=== PATIENT | male | born 1985 | race Caucasian/White ===

== ENCOUNTER 2016-06-03 14:30 | Inpatient (IN) | payer OTHER ==
[~2016-06-03] VITALS: Ht 182.9 cm; Wt 97.0 kg
[~2016-06-03 14:30] MED LIST: LORA10TA51 PO; PRLSR20 PO; RANI150T3 PO
[2016-06-03] MEDS ORDERED: CALC500C3 PO (16:01)
[2016-06-03] MEDS ORDERED: OMEP20CA9 PO (16:01)
[2016-06-03] MEDS ORDERED: SODIUM CHLORIDE 0.9% 1000ML 1,000 ML IV STA (16:09)
[2016-06-03] MEDS ORDERED: ASPIRIN 81 MG CHEW PO STA (16:09)
[2016-06-03] MEDS ORDERED: NITROGLYCERIN 0.4 MG SL PER TAB CHARGE SL PRN (16:15)
--- NOTE | 2016-06-03 16:44 | DIAGNOSTIC IMAGING REPORT ---
CHEST ONE VIEW PORTABLE CLINICAL HISTORY: Chest pain. Cough. COMPARISON STUDY: Chest radiograph October 25, 2015. FINDINGS: Lung volumes are normal. There is no pneumothorax or pleural effusion. Pulmonary vascularity is normal. Cardiac size is normal as are mediastinal contours. Mild left basilar opacity favors atelectasis. IMPRESSION: 1. No acute findings. 2. Mild left basilar opacity suggestive of atelectasis. Electronically signed by: Priyank Hu M.D. 06/03/2016 4:42 PM Dictated Date/Time: 06/03/2016 4:42 PM
[2016-06-03 16:53] LABS: BASO % 0.2 %; BASO ABS # 0.02 K/uL (0-0.2); COMPLETE YES; EOS % 0.9 %; IG% 0.3 %; LYMPH % 18.7 %; LYMPH ABS # 1.89 K/uL (1.2-3.4); MEAN CELL VOLUME 89.2 fL (80-100); MEAN CORPUSCULAR HEMOGLOBIN 32.3 pg (25-34); MEAN CORPUSCULAR HGB CONC 36.1 g/dl (32-36); MEAN PLATELET VOLUME 10.1 fL (7.4-10.4); MONO % 11.5 %; NEUT % 68.4 %; PLATELET COUNT 219 K/uL (130-400); RED BLOOD COUNT 4.93 M/uL (4.7-6.1); WHITE BLOOD COUNT 10.13 K/uL (4.8-10.8)
[2016-06-03] MEDS ORDERED: ALUMINUM/MAGNESIUM SUSP 30 ML UDC PO STA (17:08)
[2016-06-03] MEDS ORDERED: MoRPHine SULFATE 10 MG/ML CARP/VIAL IV STA (17:08)
[2016-06-03] MEDS ORDERED: LIDOCAINE HCL 2% VISC SOLN 20 ML UDC PO STA (17:08)
[2016-06-03 17:12] LABS: ALT/SGPT 83 U/L (12-78); BLOOD UREA NITROGEN 14 mg/dl (7-18); BUN/CREATININE RATIO 15.9 (10-20); CALCIUM 9.3 mg/dl (8.5-10.1); CARBON DIOXIDE 24 mmol/L (21-32); CHLORIDE 103 mmol/L (98-107); CREATININE 0.88 mg/dl (0.60-1.40); GLUCOSE 98 mg/dl (70-99); POTASSIUM 3.6 mmol/L (3.5-5.1); SODIUM 136 mmol/L (136-145)
[2016-06-03 17:17] LABS: ALKALINE PHOSPHATASE 95 U/L (45-117); AST/SGOT 40 U/L (15-37); CKMB/CK RATIO 0.9 (0-3.0)
--- NOTE | 2016-06-03 18:20 | DIAGNOSTIC IMAGING REPORT ---
ABDOMINAL ULTRASOUND, RIGHT UPPER QUADRANT HISTORY: Abdominal and chest pain. COMPARISON: None. FINDINGS: Liver echogenicity is increased. No hepatic lesions are identified and there is no biliary ductal dilatation. No gallstones are identified. There may be minimal sludge within the gallbladder. There is no gallbladder wall thickening. There is no right hydronephrosis. The pancreas is largely obscured. IMPRESSION: 1. No gallstones or biliary ductal dilatation. Possible minimal sludge within the gallbladder. No gallbladder wall thickening. 2. Fatty liver. 3. Largely obscured pancreas. Electronically signed by: Priyank Hu M.D. 06/03/2016 6:19 PM Dictated Date/Time: 06/03/2016 6:18 PM
[2016-06-03] MEDS ORDERED: ONDANSETRON INJ 2 MG/ML 2 ML VIAL IV PRN (19:00)
--- NOTE | 2016-06-03 19:51 | History and Physical ---
History & Physical Date & Time of Service: Jun 03, 2016 at 19:16 Chief Complaint: Chest Pain When Breathing Deep Or To Cough Primary Care Physician: Murtaza Cobos M.D.(AG[facility]) History of Present Illness Source: patient, spouse ( at bedside), clinic records This is a 30 year old male with PMH of GERD who presents to the ED with epigastric pain. Patient states he awoke with the pain this morning and it has been persistent from that time. He notes sharp pain in epigastric area which radiates to right and left upper quadrants with cough or deep inspiration. Pain improves with lying still. This morning he took his usual Prilosec 20 mg then tried taking Tums and Pepto Bismol without any relief. He ate a sausage sandwich last night, breakfast sandwich this morning, and hamburger for lunch. He states eating did not affect the pain. In the ER he was treated with morphine with improvement but it worsened to 8/10 in severity when he got the ultrasound done. He was nauseous for a few seconds after the PO lidocaine and Maalox was given but it resolved. Last BM was about 10 am today which was soft. He had a headache earlier today which resolved. He notes he was anxious about having his blood drawn in the ER when his BP was initially elevated. He states his BP is sometimes high in clinic. Per [facility] records it appears his BP has run [id number] in the past 2 years. He has not been on anti-hypertensive medication. He denies fevers, chills, sweats, cough, SOB, chest pain, vomiting, diarrhea, urinary changes, tremor. Pt reports drinking 2 pitchers of beer every day with last drink around 11 pm last night. No recent hard liquor. He denies history of alcohol withdrawal or seizures. Denies prior history of pancreatitis or gallbladder disease. Past Medical/Surgical History Medical Problems: (1) GERD (gastroesophageal reflux disease) Status: Chronic Surgical Problems: (1) H/O hernia repair Status: Chronic Family History Patient reports no known family medical history. Denies family history of cardiac disease. No other known medical problems in the family. Social History Smoking Status: Former Smoker (quit 8 years ago. smoked 1 ppd x 8 years ) Alcohol Use: heavy (2 pitchers of beer per day. no recent prabhu liquor. 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) Allergies Coded Allergies: No Known Allergies (Unverified , 05/30/12) Home Medications Scheduled Omeprazole (Prilosec), 20 MG PO DAILY Ranitidine Hcl (Zantac), 150 MG PO QPM Scheduled PRN Calcium Carbonate (Tums), 500 MG PO UD PRN for Indigestion Loratadine (Claritin), 10 MG PO DAILY PRN for Allergy Symptoms Review of Systems Constitutional: No chills, No fever, No sweats Eyes: No worsening of vision ENT: No nasal symptoms Respiratory: No cough, No shortness of breath Cardiovascular: No chest pain Abdomen: + nausea (resolved), + pain, No GI bleeding, No diarrhea, No vomiting Musculoskeletal: No calf pain Genitourinary - Male: No dysuria, No urinary frequency, No urinary urgency Neurologic: + problem reported (headache- resolved. denies tremor. ) Psychiatric: + anxiety (was anxious about blood draw, resolved) Physical Exam Vital Signs Date Time Temp Pulse Resp B/P Pulse Ox O2 Delivery O2 Flow Rate FiO2 06/03/16 18:50 85 14 178/112 95 Room Air 06/03/16 16:47 83 06/03/16 16:38 83 21 176/116 95 Room Air 06/03/16 14:34 37.1 92 18 180/120 96 Room Air General Appearance: WD/WN, no apparent distress, + pertinent finding (alert cooperative 30 year old male, no distress, at bedside) Head: normocephalic, atraumatic Eyes: normal inspection, PERRL, EOMI ENT: hearing grossly normal, pharynx normal Neck: supple, trachea midline Respiratory/Chest: lungs clear, normal breath sounds, no respiratory distress Cardiovascular: regular rate, rhythm, no murmur Abdomen/GI: normal bowel sounds, soft, + pertinent finding (tender in epigastrium and RUQ) Extremities/Musculoskelatal: no calf tenderness, no pedal edema, + pertinent finding (DP pulses 2+) Neurologic/Psych: alert, normal mood/affect, oriented x 3, + pertinent finding (grossly nonfocal) Skin: normal color, warm/dry Diagnostics Laboratory Results Results Past 24 Hours Test 06/03/16 16:35 06/03/16 16:48 Range/Units White Blood Count 10.13 4.8-10.8 K/uL Red Blood Count 4.93 4.7-6.1 M/uL Hemoglobin 15.9 14.0-18.0 g/dL Hematocrit 44.0 42-52 % Mean Corpuscular Volume 89.2 80-100 fL Mean Corpuscular Hemoglobin 32.3 25-34 pg Mean Corpuscular Hemoglobin Concent 36.1 32-36 g/dl Platelet Count 219 130-400 K/uL Mean Platelet Volume 10.1 7.4-10.4 fL Neutrophils (%) (Auto) 68.4 % Lymphocytes (%) (Auto) 18.7 % Monocytes (%) (Auto) 11.5 % Eosinophils (%) (Auto) 0.9 % Basophils (%) (Auto) 0.2 % Neutrophils # (Auto) 6.94 1.4-6.5 K/uL Lymphocytes # (Auto) 1.89 1.2-3.4 K/uL Monocytes # (Auto) 1.16 0.11-0.59 K/uL Eosinophils # (Auto) 0.09 0-0.5 K/uL Basophils # (Auto) 0.02 0-0.2 K/uL RDW Standard Deviation 39.5 36.4-46.3 fL RDW Coefficient of Variation 12.2 11.5-14.5 % Immature Granulocyte % (Auto) 0.3 % Immature Granulocyte # (Auto) 0.03 0.00-0.02 K/uL Sodium Level 136 136-145 mmol/L Potassium Level 3.6 3.5-5.1 mmol/L Chloride Level 103 98-107 mmol/L Carbon Dioxide Level 24 21-32 mmol/L Anion Gap 9.0 3-11 mmol/L Blood Urea Nitrogen 14 7-18 mg/dl Creatinine 0.88 0.60-1.40 mg/dl Est Creatinine Clear Calc Drug Dose 144.4 ml/min Estimated GFR () 132.7 Estimated GFR (Non- 114.5 BUN/Creatinine Ratio 15.9 10-20 Random Glucose 98 70-99 mg/dl Calcium Level 9.3 8.5-10.1 mg/dl Total Bilirubin 0.4 0.2-1 mg/dl Direct Bilirubin < 0.1 0-0.2 mg/dl Aspartate Amino Transf (AST/SGOT) 40 15-37 U/L Alanine Aminotransferase (ALT/SGPT) 83 12-78 U/L Alkaline Phosphatase 95 45-117 U/L Total Creatine Kinase 169 39-308 U/L Creatine Kinase MB 1.6 0.5-3.6 ng/ml Creatine Kinase MB Ratio 0.9 0-3.0 Total Protein 8.0 6.4-8.2 gm/dl Albumin 3.8 3.4-5.0 gm/dl Amylase Level 1094 25-115 U/L Lipase 64635 73-393 U/L Bedside Troponin I 0.000 0-0.045 ng/ml Diagnostic Radiology CHEST ONE VIEW PORTABLE CLINICAL HISTORY: Chest pain. Cough. COMPARISON STUDY: Chest radiograph October 25, 2015. FINDINGS: Lung volumes are normal. There is no pneumothorax or pleural effusion. Pulmonary vascularity is normal. Cardiac size is normal as are mediastinal contours. Mild left basilar opacity favors atelectasis. IMPRESSION: 1. No acute findings. 2. Mild left basilar opacity suggestive of atelectasis. ABDOMINAL ULTRASOUND, RIGHT UPPER QUADRANT HISTORY: Abdominal and chest pain. COMPARISON: None. FINDINGS: Liver echogenicity is increased. No hepatic lesions are identified and there is no biliary ductal dilatation. No gallstones are identified. There may be minimal sludge within the gallbladder. There is no gallbladder wall thickening. There is no right hydronephrosis. The pancreas is largely obscured. IMPRESSION: 1. No gallstones or biliary ductal dilatation. Possible minimal sludge within the gallbladder. No gallbladder wall thickening. 2. Fatty liver. 3. Largely obscured pancreas. EKG NSR, 77 bpm, no ST or T wave abnormalities, cannot rule out age indeterminate inferior infarct Impression Assessment and Plan ACUTE PANCREATITIS Secondary to alcohol abuse Lipase is >30,000; AST and ALT mildly elevated US of gallbladder- No gallstones or biliary ductal dilatation. Possible minimal sludge within the gallbladder. No gallbladder wall thickening. Fatty liver. Largely obscured pancreas. IV fluid hydration NPO except ice chips Pain control with Dilaudid PRN Check triglycerides Recheck lipase and liver profile in am GERD IV Protonix daily HYPERTENSION BP 180s/120s-> 160s/110s in ER Runs [id number] as an outpatient; not on medication Monitor for improvement once pain is controlled ALCOHOL ABUSE Monitor for withdrawal Discussed with patient stopping excessive alcohol intake; at bedside supportive Social service referral declined ATELECTASIS Incentive spirometry DVT PROPHYLAXIS SCD's DISPOSITION Follows with Dr. Cobos for primary care Patient seen in collaboration with Dr. Aguilar. Please see his addendum. VTE Prophylaxis VTE Risk Assessment Done? Y/N: Yes Risk Level: Moderate Note ATTENDING ADDENDUM Record reviewed. Patient interviewed and examined. Care coordinated with Nichole Garay PA-C. Please refer to her documentation for patient's history. Briefly, 30 YO male with GERD. Acute onset of epigastric pain today. No hematemesis, melena, hematochezia. EXAM: General- appears to be uncomfortable VS- as noted HEENT- anicteric Neck- no JVD Lungs- clear Heart- RRR Abdomen- epigastric tenderness Extremities- no edema or calf tenderness Neuro- alert DATA: Total BR 0.4, AST 40, ALT 83, alk phos 95, lipase 30,760, troponin 0. Other lab studies as noted. US abd- no gallstones, fatty liver, obscured pancreas. ASSESSMENT AND PLAN: Acute pancreatitis, possibly related to alcohol consumption (drinks 3-5 pitchers of beer a night). No apparent cholelithiasis or choledocholithiasis on US. Check triglycerides. Bowel rest, IV fluids, analgesics. Monitor for alcohol withdrawal. Consult GI. Please refer to OLIVIA Garay's documentation for discussion of other issues. Isael Aguilar MD .
[2016-06-03] MEDS: D5W AND LACTATED RINGERS 1,000 ML IV SCH (20:41)
[2016-06-03] MEDS: HYDROmorphone INJ 1 MG/ML SYR IV PRN ×2 (20:41→23:37)
[2016-06-03 21:00] VITALS: BP 154/94; PULSE 88; TEMP 36.8; O2SAT 96; Ht 182.9 cm; Wt 97.0 kg
[2016-06-03] MEDS: PANTOprazole INJ 40 MG in SYRINGE 0 ML IV SCH (21:05)
[2016-06-03 23:25] VITALS: BP 137/89; PULSE 63; TEMP 36.8; O2SAT 97
[2016-06-04] MEDS ORDERED: HydrALAZINE HCL 20 MG/ML VIAL IV. PRN
[2016-06-04] MEDS: D5W AND LACTATED RINGERS 1,000 ML IV SCH ×6 (01:54→21:44)
[2016-06-04 07:43] VITALS: BP 152/93; PULSE 90; TEMP 36.7; O2SAT 97
[2016-06-04 08:00] VITALS: O2SAT 97
[2016-06-04] MEDS: PANTOprazole INJ 40 MG in SYRINGE 0 ML IV SCH (08:01)
[2016-06-04] MEDS: THIAMINE HCL 100 MG TAB PO SCH (08:02)
[2016-06-04] MEDS: HYDROmorphone INJ 1 MG/ML SYR IV PRN ×3 (08:05→15:56)
[2016-06-04 09:08] LABS: HEMATOCRIT 42.4 % (42-52); MEAN CELL VOLUME 90.6 fL (80-100); MEAN CORPUSCULAR HEMOGLOBIN 32.1 pg (25-34); MEAN CORPUSCULAR HGB CONC 35.4 g/dl (32-36); MEAN PLATELET VOLUME 10.4 fL (7.4-10.4); PLATELET COUNT 217 K/uL (130-400); RED BLOOD COUNT 4.68 M/uL (4.7-6.1); WHITE BLOOD COUNT 6.58 K/uL (4.8-10.8)
[2016-06-04 09:26] LABS: BUN/CREATININE RATIO 11.8 (10-20); CREATININE 0.84 mg/dl (0.60-1.40); MAGNESIUM 2.4 mg/dl (1.8-2.4); POTASSIUM 3.6 mmol/L (3.5-5.1)
--- NOTE | 2016-06-04 09:28 | EMERGENCY ROOM VISIT NOTE ---
ED Visit Note First contact with patient: 15:54 Chief Complaint: Chest pain and shortness of breath. History of Present Illness: Mr. Gaxiola is a 30 year-old white male who ambulates into the ED accompanied by his complaining of chest pain and shortness of breath. Historically patient reports no significant coronary artery disease or family history of coronary artery disease He denies any coronary risk factors. Patient reports he has been feeling well the last few days and has not had any ongoing symptoms until this morning. Patient reports she awoke from sleep at approximately 5:45 AM, 8-9 hours ago, and shortly after waking developed lower sternal chest pain and shortness of breath at rest. Since that time his symptoms have been constant. Currently he places his discomfort over the lower sternal and epigastric area. He describes his discomfort as something standing on his chest. He rates his discomfort 7/10. His pain is radiating into the right and left upper quadrants and minimally into the back. She reports his pain worsens with inspiration causing him to feel short of breath. He has not identified any alleviating factors related to his pain; he does report he has a history of GERD and has been using multiple acid suppressants; including Tums, Pepto-Bismol, Zantac, and Prilosec for his stomach without relief but has not taken any pain medications. Associated with his symptoms as previously noted because he cannot take a deep breath he feels short of breath and he has mild nausea. Patient denies fevers, chills, sweats, skin eruptions, skin color changes, upper respiratory tract symptoms, wheezing, cough, orthopnea, dependent edema, previous clots, claudication, cramping, recent surgery/inactivity/extended travel, diarrhea, constipation, rectal bleeding, black/tarry stools, urinary symptoms, back/flank pain. Review of Systems: As noted above in history of present illness. All body systems were reviewed and found to be negative as noted above. Past Medical History: GERD, status post inguinal hernia repair. Current Medications: Prilosec, Zantac. Allergies to Medications: Patient denies. Social History: Patient is currently employed; he lives with his and family and feels safe in his home environment; he denies tobacco use and admits to daily alcohol use. Physical Examination: Vital Signs: Date Time Temp Pulse Resp B/P Pulse Ox O2 Delivery O2 Flow Rate FiO2 224/17 16:47 83 06/03/16 16:38 83 21 176/116 95 Room Air 06/03/16 14:34 37.1 92 18 180/120 96 Room Air GENERAL: 30-year-old male in moderate distress due to pain, nontoxic-appearing, afebrile and hemodynamically stable. NEUROLOGICAL: Awake, alert and oriented to person, place and time. Answering questions appropriately and following commands. Normal gait. Good hand eye coordination. SKIN: Warm, dry and pink. No soft tissue eruptions or trauma noted. HEENT: Atraumatic and normocephalic. PERRLA. Sclera white and conjunctiva pink. Oral cavity moist and pink. Pharynx is nonerythematous or edematous. Speech normal. No lymphadenopathy. Trachea midline. No jugular venous distention. BACK: No tenderness over the bony spine. No CVA tenderness. THORAX: Lungs sounds are clear to auscultation and equal bilaterally with symmetrical chest wall. No wheezing, rales or rhonchi. Mild tenderness over the lower third of the sternum without bony crepitus, tenderness, subcutaneous air or deformities noted. HEART: Regular rate and rhythm. No gallops, rubs or murmurs are appreciated. No lifts, heaves or thrills. PMI is not displaced. ABDOMEN: Flat and soft with moderate tenderness in the epigastrium with guarding and minimal tenderness in the medial borders of the right and left upper quadrants. Positive bowel sounds in all quadrants. No rigidity or organomegaly. EXTREMITIES: Moves all extremities well on command and with purpose. All distal neurovascular statuses are intact and equal bilaterally. No dependent edema or calf tenderness/cords. ED Course: Patient is assessed as noted above. Laboratory Testing: Test 06/03/16 16:35 06/03/16 16:48 Range/Units White Blood Count 10.13 4.8-10.8 K/uL Red Blood Count 4.93 4.7-6.1 M/uL Hemoglobin 15.9 14.0-18.0 g/dL Hematocrit 44.0 42-52 % Mean Corpuscular Volume 89.2 80-100 fL Mean Corpuscular Hemoglobin 32.3 25-34 pg Mean Corpuscular Hemoglobin Concent 36.1 32-36 g/dl Platelet Count 219 130-400 K/uL Mean Platelet Volume 10.1 7.4-10.4 fL Neutrophils (%) (Auto) 68.4 % Lymphocytes (%) (Auto) 18.7 % Monocytes (%) (Auto) 11.5 % Eosinophils (%) (Auto) 0.9 % Basophils (%) (Auto) 0.2 % Neutrophils # (Auto) 6.94 1.4-6.5 K/uL Lymphocytes # (Auto) 1.89 1.2-3.4 K/uL Monocytes # (Auto) 1.16 0.11-0.59 K/uL Eosinophils # (Auto) 0.09 0-0.5 K/uL Basophils # (Auto) 0.02 0-0.2 K/uL RDW Standard Deviation 39.5 36.4-46.3 fL RDW Coefficient of Variation 12.2 11.5-14.5 % Immature Granulocyte % (Auto) 0.3 % Immature Granulocyte # (Auto) 0.03 0.00-0.02 K/uL Sodium Level 136 136-145 mmol/L Potassium Level 3.6 3.5-5.1 mmol/L Chloride Level 103 98-107 mmol/L Carbon Dioxide Level 24 21-32 mmol/L Anion Gap 9.0 3-11 mmol/L Blood Urea Nitrogen 14 7-18 mg/dl Creatinine 0.88 0.60-1.40 mg/dl Est Creatinine Clear Calc Drug Dose 144.4 ml/min Estimated GFR () 132.7 Estimated GFR (Non- 114.5 BUN/Creatinine Ratio 15.9 10-20 Random Glucose 98 70-99 mg/dl Calcium Level 9.3 8.5-10.1 mg/dl Total Bilirubin 0.4 0.2-1 mg/dl Direct Bilirubin < 0.1 0-0.2 mg/dl Aspartate Amino Transf (AST/SGOT) 40 15-37 U/L Alanine Aminotransferase (ALT/SGPT) 83 12-78 U/L Alkaline Phosphatase 95 45-117 U/L Total Creatine Kinase 169 39-308 U/L Creatine Kinase MB 1.6 0.5-3.6 ng/ml Creatine Kinase MB Ratio 0.9 0-3.0 Total Protein 8.0 6.4-8.2 gm/dl Albumin 3.8 3.4-5.0 gm/dl Amylase Level 1094 25-115 U/L Lipase 87830 73-393 U/L Bedside Troponin I 0.000 0-0.045 ng/ml Chest X-Ray: Was read by myself and the radiologist and shows no acute infiltrates, effusions or pneumothorax. Normal heart silhouette and bony anatomy. Radiologist notes mild left basilar opacity consistent with atelectasis. No free air under the diaphragm. Gallbladder Ultrasound: Was reviewed by myself and read by the radiologist showing no gallstones or biliary duct dilatation, possible minimal sludge within the gallbladder and no gallbladder wall thickening. Fatty liver disease was noted, no right hydronephrosis. Reported largely obscured pancreas. EKG: Was read by myself and reviewed with Dr. Olivarez; shows normal sinus rhythm with a ventricular rate of 77 bpm. Normal axis intervals. No acute infiltrates , effusions or pneumothorax. No previous to compare. Patient was hydrated with normal saline. Initially he was treated as a cardiac patient and received an 81 mg of aspirin and a nitroglycerin trial without relief of his discomfort. He then was given a GI cocktail orally and 6 mg of morphine IV for his pain. Patient was reassessed multiple times during his stay in the emergency department. Patient's case was reviewed with Dr. Olivarez; we agreed on diagnostic approach, treatment, disposition and plan. Patient's case was consulted with case management and Dr. Aguilar, [facility] hospitalist, for medical observation/admission. Patient are educated about tonight's findings. Clinical Impression: Acute pancreatitis. Decision-Making: Initially my differential diagnosis I considered pulmonary embolism, acute coronary syndrome, thoracic aneurysm, pneumothorax, GERD exacerbation, pancreatitis, perforated viscus and other causes. Disposition and Plan: [facility] be [facility] the [facility] please see their notes and orders for final disposition and plan.
[2016-06-04 09:29] LABS: ALB/GLOB RATIO 0.9 (0.9-2)
--- NOTE | 2016-06-04 11:09 | Gastrointestinal Consultation ---
Gastrointestinal Consultation Date of Consultation: Jun 04, 2016 History of Present Illness Patient is a 30 year old male whom I was asked to see in regards to a diagnosis of pancreatitis. He awoke yesterday morning with epigastric abdominal pain with radiation to his back. 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 He took tums without relief and then presented to the ER. He was in his usual state of health prior to presentation and this is first episode of pancreatitis. No family hx of GI issues. He does admit to 3-5 pitchers of beer daily (he apparently has a kegorator). Does not smoke but does use smokeless tobacco. No fevers or chills prior to or upon presentation here. RUQ US visualized some sludge in GB, no stones, and no CBD dilation. LFT's are normal, Lipase dramatically elevated. He feels improved since last night, pain is less but still present, taking pain med q 2 hrs yesterday and has been 4 hrs this am since last dose of med. He is walking in room without symptoms of orthostasis. He is still NPO. Past Medical/Surgical History Medical Problems: (1) Fever Status: Acute (2) Lyme disease Status: Acute Family History Patient reports no known family medical history. 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) Allergies Coded Allergies: No Known Allergies (Unverified , 05/30/12) Current Medications Home Meds and Scripts Medications Dose Route/Sig Max Daily Dose Days Date Category Dose Instructions Tums (Calcium Carbonate) 500 Mg Chew 500 Mg PO UD PRN 06/03/16 Reported TAKE PER PACKAGE DIRECTIONS Prilosec (Omeprazole) 20 Mg Cap 20 Mg PO DAILY 06/03/16 Reported Zantac (Ranitidine HCl) 150 Mg Tab 150 Mg PO QPM 10/25/15 Reported Claritin (Loratadine) 10 Mg Tab 10 Mg PO DAILY PRN 10/25/15 Reported Review of Systems Constitutional: No chills, No fatigue, No fever, No problem reported, No see HPI, No sweats, No weakness, No weight loss Eyes: No diplopia, No discharge, No eye pain, No problem reported, No redness, No see HPI, No worsening of vision ENT: No dental problems, No hearing loss, No nasal symptoms, No pain on swallowing, No problem reported, No see HPI, No sore throat, No tinnitus, No trouble swallowing, No unusual epistaxis Respiratory: No cough, No dyspnea at rest, No dyspnea on exertion, No hemoptysis, No problem reported, No see HPI, No shortness of breath, No sputum, No wheezing Cardiac: No PND, No chest pain, No claudication, No edema, No orthopnea, No palpitations, No problem reported, No see HPI Abdomen: + see HPI Musculoskeletal: No calf pain, No joint pain, No muscle pain, No problem reported, No see HPI, No swelling Male : No dysuria, No hematuria, No incontinence, No nocturia more than once/ night, No problem reported, No see HPI, No sexual dysfunction, No slowing stream , No urinary frequency Neuro: No balance problems, No memory loss, No numbness/tingling, No paralysis , No problem reported, No see HPI, No vertigo, No weakness Psych: No anhedonism, No anxiety, No depression symptoms, No insomnia, No problem reported, No see HPI, No substance abuse Physical Exam Date Time Temp Pulse Resp B/P Pulse Ox O2 Delivery O2 Flow Rate FiO2 06/04/16 08:00 97 Room Air 06/04/16 07:43 36.7 90 20 152/93 97 Room Air 06/04/16 00:01 Room Air 06/03/16 23:25 36.8 63 20 137/89 97 Room Air 06/03/16 21:00 36.8 88 18 154/94 96 Room Air 06/03/16 21:00 36.8 88 18 154/94 96 Room Air 06/03/16 20:10 87 15 160/105 95 06/03/16 18:50 85 14 178/112 95 Room Air 06/03/16 16:47 83 06/03/16 16:38 83 21 176/116 95 Room Air 06/03/16 14:34 37.1 92 18 180/120 96 Room Air General Appearance: WD/WN, no apparent distress Eyes: normal inspection Respiratory/Chest: chest non-tender, normal breath sounds Cardiovascular: regular rate, rhythm, no edema, no gallop Abdomen: normal bowel sounds, soft, + tenderness (in epigastrium) Extremities: normal range of motion 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 Skin: normal color Laboratory Results Last 24 Hours Test 06/03/16 16:35 06/03/16 16:48 06/04/16 08:40 White Blood Count 10.13 K/uL 6.58 K/uL Red Blood Count 4.93 M/uL 4.68 M/uL Hemoglobin 15.9 g/dL 15.0 g/dL Hematocrit 44.0 % 42.4 % Mean Corpuscular Volume 89.2 fL 90.6 fL Mean Corpuscular Hemoglobin 32.3 pg 32.1 pg Mean Corpuscular Hemoglobin Concent 36.1 g/dl 35.4 g/dl Platelet Count 219 K/uL 217 K/uL Mean Platelet Volume 10.1 fL 10.4 fL Neutrophils (%) (Auto) 68.4 % Lymphocytes (%) (Auto) 18.7 % Monocytes (%) (Auto) 11.5 % Eosinophils (%) (Auto) 0.9 % Basophils (%) (Auto) 0.2 % Neutrophils # (Auto) 6.94 K/uL Lymphocytes # (Auto) 1.89 K/uL Monocytes # (Auto) 1.16 K/uL Eosinophils # (Auto) 0.09 K/uL Basophils # (Auto) 0.02 K/uL RDW Standard Deviation 39.5 fL 40.4 fL RDW Coefficient of Variation 12.2 % 12.2 % Immature Granulocyte % (Auto) 0.3 % Immature Granulocyte # (Auto) 0.03 K/uL Sodium Level 136 mmol/L 136 mmol/L Potassium Level 3.6 mmol/L 3.6 mmol/L Chloride Level 103 mmol/L 102 mmol/L Carbon Dioxide Level 24 mmol/L 30 mmol/L Anion Gap 9.0 mmol/L 4.0 mmol/L Blood Urea Nitrogen 14 mg/dl 10 mg/dl Creatinine 0.88 mg/dl 0.84 mg/dl Est Creatinine Clear Calc Drug Dose 144.4 ml/min 153.9 ml/min Estimated GFR () 132.7 135.2 Estimated GFR (Non- 114.5 116.7 BUN/Creatinine Ratio 15.9 11.8 Random Glucose 98 mg/dl 115 mg/dl Calcium Level 9.3 mg/dl 9.0 mg/dl Total Bilirubin 0.4 mg/dl 0.6 mg/dl Direct Bilirubin < 0.1 mg/dl Aspartate Amino Transf (AST/SGOT) 40 U/L 29 U/L Alanine Aminotransferase (ALT/SGPT) 83 U/L 68 U/L Alkaline Phosphatase 95 U/L 91 U/L Total Creatine Kinase 169 U/L Creatine Kinase MB 1.6 ng/ml Creatine Kinase MB Ratio 0.9 Total Protein 8.0 gm/dl 7.4 gm/dl Albumin 3.8 gm/dl 3.4 gm/dl Amylase Level 1094 U/L Lipase 47498 U/L 6407 U/L Bedside Troponin I 0.000 ng/ml Magnesium Level 2.4 mg/dl Globulin 4.0 gm/dl Albumin/Globulin Ratio 0.9 Triglycerides Level 271 mg/dl Impression Patient is a 30 year old male admitted with presentation consistent with alcohol induced non-complicated pancreatitis. HCT has declined, but minimally (less than 45 though), he looks overall stable. Dramatic consumption of Etoh is likely culprit as no other risk factor or etiologies identified. TAG's are elevated but not to extent of concern of cause of pancreatitis. Plan 1. Continue IVF at 200 cc/hr with LR as written 2. Can attempt Clears later today, but still has some tenderness 3. advance diet as tolerated 4. Follow WBC and HCT 5. D/C when pain in controlled and can tolerate diet 6. Counselled on Etoh cessation Call with questions and thank you for the consultation
[2016-06-04 15:25] VITALS: BP 122/85; PULSE 66; TEMP 36.7; O2SAT 98
[2016-06-04] MEDS ORDERED: LORAZEPAM 1 MG TAB PO PRN (16:15)
--- NOTE | 2016-06-04 16:24 | Progress Note ---
Internal Med Progress Note Date of Service: Jun 04, 2016. Provider Documentation: SUBJECTIVE: Patient is doing better than on admission Epigastric pain has improved. No nausea, vomiting, fever, chills Asking for food OBJECTIVE: Vital Signs-as noted below Exam: General-AAOX3, not in distress Eyes-No icterus Neck-Supple Lungs-AEBE, no wheezing, crackles Heart-S1, S2 normal, No murmurs Abdomen-Soft, epigastric tenderness +, BS present, no guarding Extremities-No edema Lab data as noted below. Diagnostic Radiology CHEST ONE VIEW PORTABLE IMPRESSION: 1. No acute findings. 2. Mild left basilar opacity suggestive of atelectasis. ABDOMINAL ULTRASOUND, RIGHT UPPER QUADRANT IMPRESSION: 1. No gallstones or biliary ductal dilatation. Possible minimal sludge within the gallbladder. No gallbladder wall thickening. 2. Fatty liver. 3. Largely obscured pancreas. EKG NSR, 77 bpm, no ST or T wave abnormalities, cannot rule out age indeterminate inferior infarct ASSESSMENT & PLAN: Assessment and Plan ACUTE PANCREATITIS Secondary to alcohol abuse Lipase is >30,000--> 6k ; AST and ALT mildly elevated -IV fluid hydration -NPO except ice chips--> advance to clear liquids -Pain control with Dilaudid PRN -Check triglycerides- Normal -Work up- US of gallbladder- No gallstones or biliary ductal dilatation. Possible minimal sludge within the gallbladder. No gallbladder wall thickening. Fatty liver. Largely obscured pancreas. GERD -IV Protonix daily HYPERTENSION - Stable BP 180s/120s-> 160s/110s in ER Runs [id number] as an outpatient; not on medication -Monitor ALCOHOL ABUSE Monitor for withdrawal- no signs so far -Discussed with patient stopping excessive alcohol intake; at bedside supportive -Social service referral declined ATELECTASIS Incentive spirometry DVT PROPHYLAXIS SCD's DISPOSITION Follows with Dr. Cobos for primary care Vital Signs: Date Time Temp Pulse Resp B/P Pulse Ox O2 Delivery O2 Flow Rate FiO2 06/04/16 15:25 36.7 66 18 122/85 98 Room Air 06/04/16 08:00 97 Room Air 06/04/16 07:43 36.7 90 20 152/93 97 Room Air 06/04/16 00:01 Room Air 06/03/16 23:25 36.8 63 20 137/89 97 Room Air 06/03/16 21:00 36.8 88 18 154/94 96 Room Air 06/03/16 21:00 36.8 88 18 154/94 96 Room Air 06/03/16 20:10 87 15 160/105 95 06/03/16 18:50 85 14 178/112 95 Room Air 06/03/16 16:47 83 06/03/16 16:38 83 21 176/116 95 Room Air Lab Results: Results Past 24 Hours Test 06/03/16 16:35 06/03/16 16:48 06/04/16 08:40 Range/Units White Blood Count 10.13 6.58 4.8-10.8 K/uL Red Blood Count 4.93 4.68 4.7-6.1 M/uL Hemoglobin 15.9 15.0 14.0-18.0 g/dL Hematocrit 44.0 42.4 42-52 % Mean Corpuscular Volume 89.2 90.6 80-100 fL Mean Corpuscular Hemoglobin 32.3 32.1 25-34 pg Mean Corpuscular Hemoglobin Concent 36.1 35.4 32-36 g/dl Platelet Count 219 217 130-400 K/uL Mean Platelet Volume 10.1 10.4 7.4-10.4 fL Neutrophils (%) (Auto) 68.4 % Lymphocytes (%) (Auto) 18.7 % Monocytes (%) (Auto) 11.5 % Eosinophils (%) (Auto) 0.9 % Basophils (%) (Auto) 0.2 % Neutrophils # (Auto) 6.94 1.4-6.5 K/uL Lymphocytes # (Auto) 1.89 1.2-3.4 K/uL Monocytes # (Auto) 1.16 0.11-0.59 K/uL Eosinophils # (Auto) 0.09 0-0.5 K/uL Basophils # (Auto) 0.02 0-0.2 K/uL RDW Standard Deviation 39.5 40.4 36.4-46.3 fL RDW Coefficient of Variation 12.2 12.2 11.5-14.5 % Immature Granulocyte % (Auto) 0.3 % Immature Granulocyte # (Auto) 0.03 0.00-0.02 K/uL Sodium Level 136 136 136-145 mmol/L Potassium Level 3.6 3.6 3.5-5.1 mmol/L Chloride Level 103 102 98-107 mmol/L Carbon Dioxide Level 24 30 21-32 mmol/L Anion Gap 9.0 4.0 3-11 mmol/L Blood Urea Nitrogen 14 10 7-18 mg/dl Creatinine 0.88 0.84 0.60-1.40 mg/dl Est Creatinine Clear Calc Drug Dose 144.4 153.9 ml/min Estimated GFR () 132.7 135.2 Estimated GFR (Non- 114.5 116.7 BUN/Creatinine Ratio 15.9 11.8 10-20 Random Glucose 98 115 70-99 mg/dl Calcium Level 9.3 9.0 8.5-10.1 mg/dl Total Bilirubin 0.4 0.6 0.2-1 mg/dl Direct Bilirubin < 0.1 0-0.2 mg/dl Aspartate Amino Transf (AST/SGOT) 40 29 15-37 U/L Alanine Aminotransferase (ALT/SGPT) 83 68 12-78 U/L Alkaline Phosphatase 95 91 45-117 U/L Total Creatine Kinase 169 39-308 U/L Creatine Kinase MB 1.6 0.5-3.6 ng/ml Creatine Kinase MB Ratio 0.9 0-3.0 Total Protein 8.0 7.4 6.4-8.2 gm/dl Albumin 3.8 3.4 3.4-5.0 gm/dl Amylase Level 1094 25-115 U/L Lipase 32862 6407 73-393 U/L Bedside Troponin I 0.000 0-0.045 ng/ml Magnesium Level 2.4 1.8-2.4 mg/dl Globulin 4.0 2.5-4.0 gm/dl Albumin/Globulin Ratio 0.9 0.9-2 Triglycerides Level 271 0-150 mg/dl
[2016-06-04] MEDS ORDERED: HYDROmorphone INJ 1 MG/ML SYR IV PRN (18:45)
[2016-06-05] VITALS: BP 156/91; PULSE 79; TEMP 36.4; O2SAT 97
[2016-06-05] MEDS: D5W AND LACTATED RINGERS 1,000 ML IV SCH ×5 (03:17→19:42)
[2016-06-05 08:00] VITALS: O2SAT 97
[2016-06-05 08:06] LABS: HEMATOCRIT 46.3 % (42-52); MEAN CELL VOLUME 93.2 fL (80-100); MEAN CORPUSCULAR HEMOGLOBIN 32.4 pg (25-34); MEAN CORPUSCULAR HGB CONC 34.8 g/dl (32-36); MEAN PLATELET VOLUME 10.7 fL (7.4-10.4); PLATELET COUNT 219 K/uL (130-400); RED BLOOD COUNT 4.97 M/uL (4.7-6.1); WHITE BLOOD COUNT 5.16 K/uL (4.8-10.8)
[2016-06-05] MEDS: THIAMINE HCL 100 MG TAB PO SCH (08:06)
[2016-06-05 08:10] VITALS: BP 151/81; PULSE 81; TEMP 36.7; O2SAT 97
[2016-06-05 08:34] LABS: BUN/CREATININE RATIO 7.5 (10-20); CALCIUM 9.6 mg/dl (8.5-10.1); CREATININE 0.84 mg/dl (0.60-1.40); POTASSIUM 3.8 mmol/L (3.5-5.1)
[2016-06-05] MEDS ORDERED: PANTOprazole INJ 40 MG in SYRINGE 0 ML IV SCH (11:00)
--- NOTE | 2016-06-05 15:29 | Progress Note ---
Internal Med Progress Note Date of Service: Jun 05, 2016. Provider Documentation: SUBJECTIVE: Patient is doing well and asking for food. Epigastric pain has improved significantly and has not used pain medications since morning. No nausea, vomiting, fever, chills OBJECTIVE: Vital Signs-as noted below Exam: General-AAOX3, not in distress Eyes-No icterus Neck-Supple Lungs-AEBE, no wheezing, crackles Heart-S1, S2 normal, No murmurs Abdomen-Soft, Improved epigastric tenderness +, BS present, no guarding Extremities-No edema Lab data as noted below. Diagnostic Radiology CHEST ONE VIEW PORTABLE IMPRESSION: 1. No acute findings. 2. Mild left basilar opacity suggestive of atelectasis. ABDOMINAL ULTRASOUND, RIGHT UPPER QUADRANT IMPRESSION: 1. No gallstones or biliary ductal dilatation. Possible minimal sludge within the gallbladder. No gallbladder wall thickening. 2. Fatty liver. 3. Largely obscured pancreas. EKG NSR, 77 bpm, no ST or T wave abnormalities, cannot rule out age indeterminate inferior infarct ASSESSMENT & PLAN: Assessment and Plan ACUTE PANCREATITIS - Clinically improving Secondary to alcohol abuse Lipase is >30,000--> 6k ; AST and ALT mildly elevated -IV fluid hydration- decrease rate to 125 cc/hour -Clear liquid--> advance to low fat diet -Pain control - Discontinue IV dilaudid --> change to PO percocet prn -Check triglycerides- Normal -Work up- US of gallbladder- No gallstones or biliary ductal dilatation. Possible minimal sludge within the gallbladder. No gallbladder wall thickening. Fatty liver. Largely obscured pancreas. -GI on board- Appreciate inputs GERD -IV Protonix daily- change to PO HYPERTENSION - Stable BP 180s/120s-> 160s/110s in ER Runs [id number] as an outpatient; not on medication -Monitor ALCOHOL ABUSE Monitor for withdrawal- no signs so far -Discussed with patient stopping excessive alcohol intake; at bedside supportive -Social service referral declined -Counseling done and motivated to quit ATELECTASIS Incentive spirometry DVT PROPHYLAXIS SCD's DISPOSITION Follows with Dr. Cobos for primary care Vital Signs: Date Time Temp Pulse Resp B/P Pulse Ox O2 Delivery O2 Flow Rate FiO2 06/05/16 08:10 36.7 81 18 151/81 97 Room Air 06/05/16 08:00 97 Room Air 06/05/16 00:00 36.4 79 20 156/91 97 Room Air 06/05/16 00:00 97 Room Air 06/04/16 16:15 Room Air Lab Results: Results Past 24 Hours Test 06/05/16 07:35 Range/Units White Blood Count 5.16 4.8-10.8 K/uL Red Blood Count 4.97 4.7-6.1 M/uL Hemoglobin 16.1 14.0-18.0 g/dL Hematocrit 46.3 42-52 % Mean Corpuscular Volume 93.2 80-100 fL Mean Corpuscular Hemoglobin 32.4 25-34 pg Mean Corpuscular Hemoglobin Concent 34.8 32-36 g/dl RDW Standard Deviation 41.2 36.4-46.3 fL RDW Coefficient of Variation 12.2 11.5-14.5 % Platelet Count 219 130-400 K/uL Mean Platelet Volume 10.7 7.4-10.4 fL Sodium Level 137 136-145 mmol/L Potassium Level 3.8 3.5-5.1 mmol/L Chloride Level 102 98-107 mmol/L Carbon Dioxide Level 32 21-32 mmol/L Anion Gap 3.0 3-11 mmol/L Blood Urea Nitrogen 6 7-18 mg/dl Creatinine 0.84 0.60-1.40 mg/dl Est Creatinine Clear Calc Drug Dose 153.9 ml/min Estimated GFR () 135.2 Estimated GFR (Non- 116.7 BUN/Creatinine Ratio 7.5 10-20 Random Glucose 103 70-99 mg/dl Calcium Level 9.6 8.5-10.1 mg/dl
[2016-06-05] MEDS ORDERED: OXYCODONE HCL IR 5 MG TAB (IMMEDIATE RELEASE) PO PRN (15:30)
[2016-06-05 16:07] VITALS: BP 144/101; PULSE 74; TEMP 36.8; O2SAT 97
[2016-06-05 16:12] VITALS: BP 144/101; PULSE 74; TEMP 36.8; O2SAT 97
[2016-06-06 00:03] VITALS: O2SAT 97
[2016-06-06 00:15] VITALS: BP 165/94; PULSE 73; TEMP 36.5; O2SAT 95
[2016-06-06] MEDS: D5W AND LACTATED RINGERS 1,000 ML IV SCH (03:50)
[2016-06-06 07:27] VITALS: BP 135/78; PULSE 72; TEMP 36.5; O2SAT 99
[2016-06-06] MEDS ORDERED: PANTOprazole SOD 40 MG TAB PO SCH (08:00)
[2016-06-06] MEDS: THIAMINE HCL 100 MG TAB PO SCH (08:17)
--- NOTE | 2016-06-06 12:03 | Progress Note ---
Internal Med Progress Note Date of Service: Jun 06, 2016. Provider Documentation: SUBJECTIVE: Patient is doing well and eager to be discharged. Epigastric pain has resolved and not using any more pain medications since yesterday. No nausea, vomiting, fever, chills OBJECTIVE : Vital Signs-as noted below Exam: General-AAOX3, not in distress Eyes-No icterus Neck-Supple Lungs-AEBE, no wheezing, crackles Heart-S1, S2 normal, No murmurs Abdomen-Soft, Improved epigastric tenderness +, BS present, no guarding Extremities-No edema Lab data as noted below. Diagnostic Radiology CHEST ONE VIEW PORTABLE IMPRESSION: 1. No acute findings. 2. Mild left basilar opacity suggestive of atelectasis. ABDOMINAL ULTRASOUND, RIGHT UPPER QUADRANT IMPRESSION: 1. No gallstones or biliary ductal dilatation. Possible minimal sludge within the gallbladder. No gallbladder wall thickening. 2. Fatty liver. 3. Largely obscured pancreas. EKG NSR, 77 bpm, no ST or T wave abnormalities, cannot rule out age indeterminate inferior infarct ASSESSMENT & PLAN: Assessment and plan : ACUTE PANCREATITIS - Clinically improved Secondary to alcohol abuse Lipase is >30,000--> 6k --> 2k; AST and ALT mildly elevated --> resolved -IV fluid hydration -Tolerating low fat diet very well -Pain control - Discontinue IV Dilaudid --> Change to PO Percocet PRN -Triglycerides - Normal -Work up - US of gallbladder- No gallstones or biliary ductal dilatation. Possible minimal sludge within the gallbladder. No gallbladder wall thickening. Fatty liver. Largely obscured pancreas. -GI on board- Appreciate inputs GERD -IV Protonix daily- changed to PO HYPERTENSION - Stable BP 180s/120s-> 160s/110s in ER Runs [id number] as an outpatient; not on medication -Monitor outpatient ALCOHOL ABUSE Monitor for withdrawal- no signs so far -Discussed with patient stopping excessive alcohol intake; at bedside supportive -Social service referral declined -Counseling done and motivated to quit ATELECTASIS Incentive spirometry DVT PROPHYLAXIS SCD's DISPOSITION Okay to discharge home today Has [facility] so no more [facility]inger pcp. Establish care with [facility] PCP per . Vital Signs: Date Time Temp Pulse Resp B/P Pulse Ox O2 Delivery O2 Flow Rate FiO2 06/06/16 08:15 Room Air 06/06/16 07:27 36.5 72 18 135/78 99 Room Air 06/06/16 00:15 36.5 73 20 165/94 95 Room Air 06/06/16 00:03 97 Room Air 06/05/16 16:12 36.8 74 18 97 Room Air 06/05/16 16:07 36.8 74 18 144/101 97 Room Air 06/05/16 16:00 Room Air Lab Results: Results Past 24 Hours Test 06/06/16 07:13 Range/Units Lipase 2427 73-393 U/L
[2016-06-06] MEDS ORDERED: PRT40 PO (12:04)
--- NOTE | 2016-06-06 12:05 | Discharge Instructions ---
Discharge Instructions Admission Reason for Admission: Pancreatitis Discharge Discharge Diagnosis / Problem: Acute alcoholic pancreatitis Discharge Goals Goal(s): Diagnostic testing, Therapeutic intervention, Prevent Disease Progression Activity Recommendations Activity Limitations: resume your previous activity . Instructions / Follow-Up Instructions / Follow-Up MEDICATION CHANGES Prilosec changed to protonix as symptoms better controlled with it FOLLOW UP 1. Establish care with [facility] PCP and follow up in 7 days STOP ALCOHOL Current Hospital Diet Patient's current hospital diet: Regular Diet, Low Fat Diet Discharge Diet Recommended Diet: Low Fat Diet Pending Studies Studies pending at discharge: no Laboratory Results Lipid Panel Test 06/04/16 08:40 Range/Units Triglycerides Level 271 H 0-150 mg/dl Medical Emergencies . Who to Call and When: Medical Emergencies: If at any time you feel your situation is an emergency, please call 911 immediately. . Non-Emergent Contact Non-Emergency issues call your: Primary Care Provider . . "Provider Documentation" section prepared by Bronwyn Elliott. VTE Core Measure Inpt VTE Proph given/why not?: Esvin Bryson, SCD's
--- NOTE | 2016-06-06 12:07 | Discharge Summary ---
Discharge Summary Date of Service Jun 06, 2016. Discharge Summary Admission Date: Jun 03, 2016 at 18:45 Discharge Date: Jun 06, 2016 Discharge Disposition: Home Principal Diagnosis: 1. Acute alcoholic pancreatitis Secondary Diagnoses/Problems: 1. Hypertension 2. GERD Procedures: CXR US gall bladder IVF Consultations: GI, Dr Ayala Pending Studies/Follow-Up: Instructions / Follow-Up MEDICATION CHANGES Prilosec changed to protonix as symptoms better controlled with it FOLLOW UP 1. Establish care with [facility] PCP and follow up in 7 days STOP ALCOHOL Medication Reconciliation New Medications: Pantoprazole (Pantoprazole Sodium) 40 Mg Tab 40 MG PO QAM for 30 Days, #30 TAB Continued Medications: Calcium Carbonate (Tums) 500 Mg Chew 500 MG PO UD PRN for Indigestion TAKE PER PACKAGE DIRECTIONS Loratadine (Claritin) 10 Mg Tab 10 MG PO DAILY PRN for Allergy Symptoms Ranitidine Hcl (Zantac) 150 Mg Tab 150 MG PO QPM Discontinued Medications: Omeprazole (Prilosec) 20 Mg Cap 20 MG PO DAILY, CAP Admission Information HPI (per Admitting provider): This is a 30 year old male with PMH of GERD who presents to the ED with epigastric pain. Patient states he awoke with the pain this morning and it has been persistent from that time. He notes sharp pain in epigastric area which radiates to right and left upper quadrants with cough or deep inspiration. Pain improves with lying still. This morning he took his usual Prilosec 20 mg then tried taking Tums and Pepto Bismol without any relief. He ate a sausage sandwich last night, breakfast sandwich this morning, and hamburger for lunch. He states eating did not affect the pain. In the ER he was treated with morphine with improvement but it worsened to 8/10 in severity when he got the ultrasound done. He was nauseous for a few seconds after the PO lidocaine and Maalox was given but it resolved. Last BM was about 10 am today which was soft. He had a headache earlier today which resolved. He notes he was anxious about having his blood drawn in the ER when his BP was initially elevated. He states his BP is sometimes high in clinic. Per [facility] records it appears his BP has run [id number]/90s-100 in the past 2 years. He has not been on anti-hypertensive medication. He denies fevers, chills, sweats, cough, SOB, chest pain, vomiting, diarrhea, urinary changes, tremor. Pt reports drinking 2 pitchers of beer every day with last drink around 11 pm last night. No recent hard liquor. He denies history of alcohol withdrawal or seizures. Denies prior history of pancreatitis or gallbladder disease. Physical Exam (per Admitting): General Appearance: WD/WN, no apparent distress, + pertinent finding (alert cooperative 30 year old male, no distress, at bedside) Head: normocephalic, atraumatic Eyes: normal inspection, PERRL, EOMI ENT: hearing grossly normal, pharynx normal Neck: supple, trachea midline Respiratory/Chest: lungs clear, normal breath sounds, no respiratory distress Cardiovascular: regular rate, rhythm, no murmur Abdomen/GI: normal bowel sounds, soft, + pertinent finding (tender in epigastrium and RUQ) Extremities/Musculoskelatal: no calf tenderness, no pedal edema, + pertinent finding (DP pulses 2+) Neurologic/Psych: alert, normal mood/affect, oriented x 3, + pertinent finding (grossly nonfocal) Skin: normal color, warm/dry Hospital Course Assessment and plan : ACUTE PANCREATITIS - Clinically improved, resolved Secondary to alcohol abuse Lipase is >30,000--> 6k --> 2k; AST and ALT mildly elevated --> resolved -IV fluid hydration -Tolerating low fat diet very well -Pain control - Discontinue IV Dilaudid --> Change to PO Percocet PRN -Triglycerides - Normal -Work up - US of gallbladder- No gallstones or biliary ductal dilatation. Possible minimal sludge within the gallbladder. No gallbladder wall thickening. Fatty liver. Largely obscured pancreas. -GI on board- Appreciate inputs. Cleared patient for discharge GERD -On prilosec/Ranitidine at home. Symptoms better controlled on protonix so requesting me to change it -New prescription given HYPERTENSION - Stable BP 180s/120s-> 160s/110s in ER Runs [id number] as an outpatient; not on medication -Monitor outpatient ALCOHOL ABUSE Monitor for withdrawal- no signs so far -Discussed with patient stopping excessive alcohol intake; at bedside supportive -Social service referral declined -Counseling done and motivated to quit ATELECTASIS Incentive spirometry DVT PROPHYLAXIS SCD's DISPOSITION Okay to discharge home today Has [facility] so no more [facility] pcp. Establish care with [facility] PCP per . Total time spent on discharge = 35 MINUTES This includes examination of the patient, discharge planning, medication reconciliation, and communication with other providers. Discharge Instructions Activity Limitations: resume your previous activity . Instructions / Follow-Up Instructions / Follow-Up MEDICATION CHANGES Prilosec changed to protonix as symptoms better controlled with it FOLLOW UP 1. Establish care with [facility] PCP and follow up in 7 days STOP ALCOHOL Current Hospital Diet Patient's current hospital diet: Regular Diet, Low Fat Diet Discharge Diet Recommended Diet: Low Fat Diet Pending Studies Studies pending at discharge: no Laboratory Results Lipid Panel Test 06/04/16 08:40 Range/Units Triglycerides Level 271 H 0-150 mg/dl Medical Emergencies . Who to Call and When: Medical Emergencies: If at any time you feel your situation is an emergency, please call 911 immediately. . Non-Emergent Contact Non-Emergency issues call your: Primary Care Provider . . "Provider Documentation" section prepared by Bronwyn Elliott. VTE Core Measure Inpt VTE Proph given/why not?: Esvin Bryson, SCD's
[2016-08-18] MEDS ORDERED: SERT25TA PO (08:13)
[2016-08-25] MEDS ORDERED: HYDR-5688 PO (11:38)
== END 2016-06-06 13:50 | disposition home or self-care (01) | DRG 439 ==
LOC: ENRESERVDT → ENRESERVTM → C.EDB 14:31 → C.MS4W 18:45
PROVIDERS: ADMIT Hospitalist; ATTEND Internal Medicine
DX: K85.20 Alcohol induced acute pancreatitis without necrosis or infection (principal); J98.11 Atelectasis; I10 Essential (primary) hypertension; K21.9 Gastro-esophageal reflux disease without esophagitis; F10.10 Alcohol abuse, uncomplicated; F17.290 Nicotine dependence, other tobacco product, uncomplicated

== ENCOUNTER → 2016-06-20 | Outpatient (CLI) | payer OTHER ==
[~2016-06-20] MED LIST changes: +CALC500C3 PO; +HYDR-5688 PO; -PRLSR20 PO; +PRT40 PO; +SERT25TA PO
[2016-06-20 18:57] LABS: AMYLASE 69 U/L (25-115)
== END | disposition home or self-care (01) ==
LOC: C.LABBFT 15:43
PROVIDERS: ATTEND Internal Medicine
DX: K86.1 Other chronic pancreatitis (principal)

== ENCOUNTER → 2016-06-27 | Outpatient (CLI) | payer OTHER ==
[~2016-06-27] MED LIST changes: +OPTIRAY 320 IV PRN
--- NOTE | 2016-06-27 17:23 | DIAGNOSTIC IMAGING REPORT ---
CT ABD/PELVIS IV AND ORAL CONT CLINICAL HISTORY: K86.1 Chronic [id number] COMPARISON STUDY: Gallbladder ultrasound dated 06/03/2016 TECHNIQUE: Following the IV administration of 116 mL of Optiray-320, CT scan of the abdomen and pelvis was performed from the lung bases to the proximal femurs. Images are reviewed in the axial, sagittal, and coronal planes. IV contrast was administered without complication. CT DOSE: 956.03 mGycm FINDINGS: Lower chest: There are mild basilar atelectatic changes. There is a small hiatal hernia. Liver: There is mild hepatic steatosis. No focal masses are visualized. There is no ductal dilatation. Gallbladder: Unremarkable. Spleen: Normal in size and attenuation. Pancreas: Unremarkable. Adrenal glands: Unremarkable. Kidneys: There is symmetric renal cortical enhancement. The kidneys are normal in size without hydronephrosis. Bowel: There are no transition zones indicate bowel obstruction. The appendix appears normal. There is no acute diverticulitis. Borderline bowel wall thickening at the level of the hepatic flexure, likely secondary to a nondistended segment. Peritoneum: There is no intraperitoneal free air or abdominal ascites. There are small inguinal hernias versus lipomatous inguinal canals Vasculature: The abdominal aorta is normal in course and caliber. Adenopathy: None. Pelvic viscera: The bladder, and pelvic viscera are unremarkable. Skeletal structures: No destructive osseous lesions are seen. IMPRESSION: 1. No pancreatic abnormalities identified. No peripancreatic fluid collections are visualized 2. No evidence of bowel obstruction. No evidence of free air. 3. No acute inflammatory changes Electronically signed by: Humble Hunt M.D. 06/27/2016 5:22 PM Dictated Date/Time: 06/27/2016 5:17 PM
== END | disposition home or self-care (01) ==
LOC: C.CTS 14:28
PROVIDERS: ATTEND Internal Medicine
DX: K86.1 Other chronic pancreatitis (principal)

== ENCOUNTER → 2016-07-11 | Outpatient (CLI) | payer OTHER ==
[~2016-07-11] MED LIST changes: -OPTIRAY 320 IV PRN
== END | disposition home or self-care (01) ==
LOC: C.LABBFT 15:18
PROVIDERS: ATTEND Internal Medicine
DX: K86.1 Other chronic pancreatitis (principal)

== ENCOUNTER → 2016-07-21 | Outpatient (CLI) | payer OTHER ==
--- NOTE | 2016-07-21 16:03 | DIAGNOSTIC IMAGING REPORT ---
Limited abdominal ultrasound ABDOMEN FOR HERNIA CLINICAL HISTORY: Hernia. Hernia repair. TECHNIQUE: Ultrasound COMPARISON STUDY: None FINDINGS: Small fat-containing partially reducible left inguinal hernia. No evidence of bowel containment. No evidence for abscess or collection. IMPRESSION: Small partially reducible left inguinal hernia containing fat exclusively. Electronically signed by: Harish Ramos M.D. 07/21/2016 4:01 PM Dictated Date/Time: 07/21/2016 3:59 PM
== END | disposition home or self-care (01) ==
LOC: C.ULTR 15:36
PROVIDERS: ATTEND Internal Medicine
DX: Z98.890 Other specified postprocedural states (principal)

== ENCOUNTER → 2016-08-18 | Outpatient (CLI) | payer OTHER ==
[2016-08-18 12:17] LABS: BASO % 0.3 %; BASO ABS # 0.02 K/uL (0-0.2); COMPLETE YES; EOS % 1.5 %; HEMATOCRIT 47.7 % (42-52); IG% 0.2 %; LYMPH % 33.1 %; LYMPH ABS # 1.99 K/uL (1.2-3.4); MEAN CELL VOLUME 91.6 fL (80-100); MEAN CORPUSCULAR HEMOGLOBIN 30.7 pg (25-34); MEAN CORPUSCULAR HGB CONC 33.5 g/dl (32-36); MEAN PLATELET VOLUME 12.1 fL (7.4-10.4); MONO % 5.8 %; NEUT % 59.1 %; PLATELET COUNT 257 K/uL (130-400); RED BLOOD COUNT 5.21 M/uL (4.7-6.1); WHITE BLOOD COUNT 6.01 K/uL (4.8-10.8)
[2016-08-18 12:36] LABS: CALCIUM 9.5 mg/dl (8.5-10.1)
[2016-08-18 12:38] LABS: BLOOD UREA NITROGEN 19 mg/dl (7-18); BUN/CREATININE RATIO 15.8 (10-20); CARBON DIOXIDE 27 mmol/L (21-32); CHLORIDE 104 mmol/L (98-107); GLUCOSE 135 mg/dl (70-99); POTASSIUM 3.9 mmol/L (3.5-5.1); SODIUM 140 mmol/L (136-145)
== END | disposition home or self-care (01) ==
LOC: C.LABBFT 08:05
PROVIDERS: ATTEND Surgery
DX: Z01.812 Encounter for preprocedural laboratory examination (principal); K42.9 Umbilical hernia without obstruction or gangrene; K40.90 Unilateral inguinal hernia, without obstruction or gangrene, not specified as recurrent

== ENCOUNTER 2016-08-25 10:35 | Day surgery (SDC) | payer OTHER ==
[2016-08-18 08:13] VITALS: BMI 31.0
[~2016-08-25] VITALS: Ht 177.8 cm; Wt 97.7 kg
[~2016-08-25 10:35] MED LIST changes: +CEFAZOLIN 2000 MG/60 ML D5W IV SCH; -HYDR-5688 PO; +LACTATED RINGER'S 1000ML 1,000 ML IV SCH
[2016-08-25 11:02] VITALS: BP 153/110; PULSE 74; TEMP 36.7; O2SAT 96; Ht 177.8 cm; Wt 97.7 kg
[2016-08-25] MEDS ORDERED: ROCURONIUM BROMIDE 10 MG/ML 5 ML VIAL ONE (11:04)
[2016-08-25] MEDS ORDERED: LIDOCAINE 2% 20 MG/ML 5ML SYR ONE (11:04)
[2016-08-25] MEDS ORDERED: PROPOFOL IV EMULSION 10 MG/ML 20 ML VIAL IV ONE (11:04)
[2016-08-25] MEDS ORDERED: FENTANYL CITRATE INJ 50 MCG/1 ML 2 ML VIAL ONE ×2 (11:04→11:58)
[2016-08-25] MEDS ORDERED: MIDAZOLAM HCL 1 MG/ML 2ML VIAL ONE (11:04)
[2016-08-25] MEDS ORDERED: BUPIVACAINE/EPINEPHRINE 0.5% MPF 1:200,000 30 ML VIAL ONE (11:20)
--- NOTE | 2016-08-25 11:35 | History & Physical Bridge Note ---
H&P Re-Evaluation Bridge Note: I have examined the patient, reviewed the History & Physical and in the interval since the performance of the History & Physical I have noted the following changes of clinical significance: No changes noted
[2016-08-25] MEDS ORDERED: HYDR-5688 PO (11:38)
[2016-08-25] MEDS ORDERED: ONDANSETRON INJ 2 MG/ML 2 ML VIAL IV PRN ×2 (11:45→13:00)
[2016-08-25] MEDS ORDERED: ATROPINE SULFATE 0.1 MG/ML 5ML SYR IV PRN (11:45)
[2016-08-25] MEDS ORDERED: EpHEDrine SULFATE INJ 50 MG/ML AMP IV PRN (11:45)
[2016-08-25] MEDS ORDERED: PROMETHAZINE HCL INJ 6.25 MG in SODIUM CHLORIDE 0.9% 50ML 50 ML IV PRN (11:45)
[2016-08-25] MEDS ORDERED: DEXAMETHASONE SOD INJ 4 MG/ML VIAL ONE ×2 (12:03)
[2016-08-25] MEDS ORDERED: ONDANSETRON INJ 2 MG/ML 2 ML VIAL ONE (12:03)
[2016-08-25] MEDS ORDERED: KETOROLAC TROMETHAMINE 30 MG/ML VIAL ONE (12:29)
[2016-08-25] MEDS ORDERED: HYDROmorphone INJ 2 MG/ML SYR/VIAL ONE (12:37)
--- NOTE | 2016-08-25 12:40 | [facility] Operative Report ---
Operative Report Operative Date August 25, 2016. Pre-Operative Diagnosis Recurrent Left Inguinal Hernia, Umbilical Hernia Post-Operative Diagnosis same with adhesions Procedure(s) Performed laparoscopic repair of recurrent LIH with mesh;repair of umbilical hernia; enterolysis Surgeon Manager Therapy Surgeon(s) Porfirio Loving PA-C, Janay Villegas PA-C Estimated Blood Loss 5ml Findings indirect inguinal hernia-left;umbilical hernia;adhesions Specimens None per surgeon. Anesthesia get Complication(s) None Disposition Recovery Room / PACU I attest to the content of the Intraoperative Record and any orders documented therein. Any exceptions are noted below.
[2016-08-25] MEDS ORDERED: LACTATED RINGER'S 1000ML 1,000 ML IV SCH (12:55)
--- NOTE | 2016-08-25 12:55 | Discharge Instructions ---
Discharge Instructions Date of Service August 25, 2016. Visit Reason for Visit: Left Inguinal Hernia, Umbilical Hernia Discharge Discharge Diagnosis / Problem: repair of inguinal and umbilical hernias Discharge Goals Goal(s): Decrease discomfort Activity Recommendations Activity Limitations: as noted below Lifting Limitations: no more than 10 pounds Shower/Bathe: no limitations (ok to shower) Driving or Machine Use: resume 3 days after discharge Anesthesia . Post Anesthesia Instructions: If you have had General Anesthesia or IV Sedation: * Do not drive today. * Resume driving when surgeon permits. * Do not make important decisions or sign legal documents today. * Call surgeon for: 1. Temperature elevations greater than 101 degrees F. 2. Uncontrollable pain. 3. Excessive bleeding. 4. Persistent nausea and vomiting. 5. Medication intolerance (nausea, vomiting or rash). * For nausea and vomiting use only clear liquids such as: tea, soda, bouillon until nausea subsides, then gradually increase diet as tolerated. * If you have any concerns or questions, call your surgeon's office. If physician is unavailable and it is an emergency, call 911 or go to the nearest emergency room. . Instructions / Follow-Up Instructions / Follow-Up Dr. Del Castillo in 2 weeks, call [phone] for any questions or to schedule Diet Recommendations Recommended Home Diet: no limitations Procedures Procedures Performed: Left Laparoscopic Inguinal Hernia Repair with Mesh, Enteral Lysis; Open Umbilical Hernia Repair Pending Studies Studies pending at discharge: no Medical Emergencies . Who to Call and When: Medical Emergencies: If at any time you feel your situation is an emergency, please call 911 immediately. . Non-Emergent Contact Non-Emergency issues call your: Surgeon Call Non-Emergent contact if: you have a fever, temperature is above 101.5, your pain is not controlled, wound has increased redness . . "Provider Documentation" section prepared by Murtaza Loving. .
[2016-08-25] MEDS ORDERED: MoRPHine SULFATE 4 MG/ML 1 ML CARP\\VIAL IV PRN (13:00)
[2016-08-25] MEDS: FENTANYL CITRATE INJ 50 MCG/1 ML 2 ML VIAL IV PRN ×2 (13:09→13:14)
--- NOTE | 2016-08-25 13:53 | Anesthesiology Progress Note ---
Anesthesia Post Op Note Date & Time August 25, 2016 at 13:54 Vital Signs Pain Intensity: 3 Vital Signs Past 12 Hours Date Time Temp Pulse Resp B/P Pulse Ox O2 Delivery O2 Flow Rate FiO2 08/25/16 13:48 66 19 95 08/25/16 13:48 67 19 08/25/16 13:47 148/83 08/25/16 13:43 67 23 97 08/25/16 13:43 66 23 08/25/16 13:42 63 19 08/25/16 13:42 63 19 92 08/25/16 13:41 143/85 08/25/16 13:37 67 14 95 08/25/16 13:37 63 14 08/25/16 13:36 148/86 08/25/16 13:33 56 18 96 08/25/16 13:33 57 18 08/25/16 13:31 150/99 08/25/16 13:31 36.5 08/25/16 13:28 65 12 93 08/25/16 13:28 65 12 08/25/16 13:27 60 16 94 08/25/16 13:27 60 16 08/25/16 13:26 157/79 08/25/16 13:22 71 28 96 08/25/16 13:22 70 28 08/25/16 13:21 145/92 08/25/16 13:18 67 20 08/25/16 13:18 66 20 96 08/25/16 13:17 146/78 08/25/16 13:13 62 18 94 08/25/16 13:13 62 18 08/25/16 13:12 144/94 08/25/16 13:10 62 13 92 08/25/16 13:10 63 13 08/25/16 13:06 155/96 08/25/16 13:05 64 17 08/25/16 13:05 65 17 92 08/25/16 13:02 161/109 08/25/16 13:00 71 19 08/25/16 13:00 70 19 95 08/25/16 12:57 167/90 08/25/16 12:55 69 20 08/25/16 12:55 75 20 98 08/25/16 12:54 169/106 08/25/16 12:50 37.1 82 18 173/122 100 Mask 10 08/25/16 12:50 79 18 173/122 100 08/25/16 12:50 80 18 08/25/16 11:02 36.7 74 22 153/110 96 Room Air Notes Mental Status: alert / awake / arousable, participated in evaluation Pt Amnestic to Procedure: Yes Nausea / Vomiting: adequately controlled Pain: adequately controlled Airway Patency, RR, SpO2: stable & adequate BP & HR: stable & adequate Hydration State: stable & adequate Anesthetic Complications: no major complications apparent
[2016-08-25 13:56] VITALS: BP 147/92; PULSE 64; TEMP 36.7; O2SAT 95
--- NOTE | 2016-08-25 14:06 | OPERATIVE REPORT ---
DATE OF OPERATION: 08/25/2016 PREOPERATIVE DIAGNOSES: 1. Recurrent left inguinal hernia. 2. Umbilical hernia. POSTOPERATIVE DIAGNOSIS: Same with abdominal adhesions. PROCEDURE: Laparoscopic repair of recurrent left inguinal hernia with mesh and umbilical hernia repair and enterolysis. SURGEON: Dr. Del Castillo. FILTER PLANT SUPERVISOR: Porfirio Loving PA-C and Janay Villegas PA-C. ESTIMATED BLOOD LOSS: 5 mL. COMPLICATIONS: No immediate. ANESTHESIA: General. The patient tolerated the procedure well. OPERATIVE NOTE: After informed consent was obtained, the patient was taken to the operating suite and placed in supine position. After successful intubation a Layne catheter was placed and the abdomen was shaved and sterilely prepped and draped in usual fashion. I made an incision directly over his visible and palpable umbilical hernia. We carried this down through the hernia sac and opened the peritoneum and performed a finger sweep. We placed #0 Vicryl stay sutures in the fascial edges and put the camera in indirectly through the umbilical hernia defect. We then inflated the abdomen to 18 mmHg. Laparoscope was inserted and the abdomen examined 360 degrees. Two right mid abdominal 5 mm trocars were placed under direct vision as well. The right inguinal region was completely normal with no evidence of any hernia. Left inguinal hernia that had a prior open repair did appear it had a fair amount of small bowel and sigmoid adhesions directly to the area of prior repair. I used traction countertraction scissors and a small amount of Harmonic scalpel to take down these adhesions. I almost wonder if these adhesions were not some of the source of his pain. Nonetheless, once we took these down, there was an obvious visible indirect hernia defect. I took down the peritoneum and reduced the hernia sac. We skeletonized the cord and cord structures. We then used a piece of Surgimesh with silicone barrier to repair the defect. It was placed directly over the defect with the antiadhesive surface facing the abdominal cavity. We then used several tacks with a ProTack device to secure the mesh into place. We made sure we were able to stay above the iliopubic tract by palpating the Tacker before firing. Once we had this secured we then made sure all the bowel was reduced. We did place some peritoneum back up over it and then we took a final look around the abdomen. There was adequate hemostasis and no other abnormalities were seen. We then held the mesh into place and desufflated the abdomen as we watched. The mesh folded and tacoed into the defect. Once we were satisfied we then removed the camera and all the trocars and finished desufflating the abdomen. We then closed the repair of the umbilical hernia with 0 Ethibond interrupted [id number] fashion to primarily close the defect. We thoroughly irrigated the wounds and closed the skin with 4-0 Monocryl. Marcaine was injected around them for postoperative analgesia and skin glue used as dressing. The patient was awakened, extubated, and transferred to recovery in stable condition. I attest to the content of the Intraoperative Record and any orders documented therein. Any exceptio ns are noted below.
[2016-08-25] MEDS: HYDROCODONE/ACETAMOPHEN 5/325MG TAB PO PRN ×2 (14:24→14:53)
[2016-08-25 14:26] VITALS: BP 162/77; PULSE 70; O2SAT 95
[2016-08-25 14:55] VITALS: BP 159/75; PULSE 66; TEMP 36.6; O2SAT 96
== END 2016-08-25 15:40 | disposition home or self-care (01) ==
LOC: C.ACU 10:35
PROVIDERS: ATTEND Surgery
DX: K40.91 Unilateral inguinal hernia, without obstruction or gangrene, recurrent (principal); K42.9 Umbilical hernia without obstruction or gangrene; K66.0 Peritoneal adhesions (postprocedural) (postinfection); K21.9 Gastro-esophageal reflux disease without esophagitis; K86.1 Other chronic pancreatitis; F10.10 Alcohol abuse, uncomplicated; J30.2 Other seasonal allergic rhinitis; Z82.49 Family history of ischemic heart disease and other diseases of the circulatory system; Z87.891 Personal history of nicotine dependence; Z79.899 Other long term (current) drug therapy

== ENCOUNTER 2020-01-24 11:54 | Inpatient (IN) ==
[2020-01-24] MEDS ORDERED: SODIUM CHLORIDE 0.9% 1000ML 1,000 ML IV ONE (13:54)
[2020-01-24] MEDS ORDERED: ONDANSETRON INJ 2 MG/ML 2 ML VIAL IV STA (13:54)
[2020-01-24] MEDS ORDERED: GI COCKTAIL ED USE PO ONE (13:54)
[2020-01-24] MEDS ORDERED: MoRPHine SULFATE 4 MG/ML 1 ML CARP\\VIAL IV STA (13:54)
--- NOTE | 2020-01-24 14:16 | Emergency Department Note ---
History of Present Illness General Chief complaint: Abdominal Pain Stated complaint: STOMACH PAIN, NAUSEA Time Seen by Provider: 01/24/20 13:46 History of Present Illness Maximum Pain Intensity: 10 34-year-old male who presents to the emergency department with complaint of abdominal pain, nausea and multiple episodes of vomiting this morning. The patient reports awakening at 7:30 AM with discomfort. Patient has a known history of alcoholism, and reports drinking 6-8 beers last evening; the patient reports that this is on the low side, reporting that he can often times drink a 12 pack every night. The patient reports a history of pancreatitis approximately 2 years ago. He was also seen in the emergency department last year for acute alcoholic gastritis. The patient denies any use of NSAIDs. He denies illicit drug use. He has had no recent dark tarry stools or coffee-grou nd emesis. He denies any pain radiating into the back or chest, and also denies any shortness of breath. The patient rates his discomfort a 10 out of 10. Home Medications Home Medications Medication Instructions Recorded Confirmed Type loratadine [Claritin] 10 mg PO DAILY 01/13/18 01/24/20 History pantoprazole 40 mg tablet,delayed 40 mg PO DAILY #90 tab 04/25/19 01/24/20 Rx release multivitamin 1 tab PO DAILY 01/24/20 01/24/20 History Allergies Allergy/AdvReac Type Severity Reaction Status Date / Time No Known Allergies Allergy Verified 01/24/20 18:22 Past Med/Surg History Medical History Alcoholic gastritis 2019 - required hospitalization Alcoholism GERD (gastroesophageal reflux disease) Lyme arthritis of knee chronic?? Pancreatitis 2018 Surgical History H/O hernia repair left inguinal hernia x 2; umbilical; Family History Mother Breast cancer Father No problems noted. Grandfather (Paternal) Myocardial infarction Stroke Social History Smoking Status: Former smoker Tobacco Type: Smokeless Tobacco (Dip or Chew) Age Started Using Tobacco: 14; Smoking End Date: 2010; Second Hand Exposure: Yes; Do You Dip or Chew Tobacco: Yes; Tobacco Cessation Education Requested by Patient: No Hx Alcohol Use: Yes Alcohol type: beer Alcohol Intake Frequency Comment: 12 beers a day (16oz each time) Hx Substance Use: No Preferred Language: Malawian Communication Ability: Effective Lease Out Man Required: No Beliefs That Will Affect Care: None marital status: Current Living Situation: Spouse current occupational status: employed 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 How many Children do You have: 1 Other Information That Helps Us Care for You: No other: originally from [place] Feels Safe at Home: Yes Safety Concerns: Feels Safe At This Time Assistive Devices: None Review of Systems 10 system review was performed and was negative except for pertinent positives and negatives as indicated in history of present illness Physical Exam Vital Signs Vital Signs - 24 hr 01/24/20 12:13 Temperature 36.7 C Temperature Source Oral Pulse Rate 105 H Respiratory Rate 16 Blood Pressure 225/88 H Blood Pressure Mean 133 Pulse Oximetry 100 Oxygen Delivery Method Room Air Sepsis Recent Fever Within 48 Hours No Sepsis New/Unexplained Change in Mental Status N/A Sepsis Action Taken by Nursing No Action Required CONSTITUTIONAL: Healthy and well nourished. Alert and oriented X 3. Patient appears in moderate severe discomfort with vomiting. HEENT: Normocephalic, atraumatic. Pupils equal, round and reactive. No scleral icterus or conjunctival injection. Mucous membranes are dry. NECK: Full active range of motion without discomfort. LYMPHATICS: No cervical chain adenopathy. RESPIRATORY: Clear to auscultation bilaterally with no wheezing, crackles, rhonchi or stridor. CARDIOVASCULAR: Regular rate and rhythm with no murmurs, rubs or gallops. GASTROINTESTINAL: Bowel sounds present in all quadrants. Patient has diffuse upper and lower abdominal tenderness to palpation. Negative CVA tenderness. No abdominal rigidity, guarding or rebound. MUSCULOSKELETAL: Full range of motion of all joints without discomfort. INTEGUMENTARY: No rash or other significant dermatologic conditions noted. HEMATOLOGIC: No ecchymosis or petechiae. PSYCHIATRIC: Positive affect. NEUROLOGIC: No focal neurologic deficits noted. Course Course Patient history and physical exam were performed. Nurses notes were reviewed. Vital signs were reviewed. The patient is tachycardic at 105 bpm. He is also hypertensive at 225/88. He is afebrile and not tachypneic. IV access was es tablished, and labs were drawn. The patient was hydrated with a liter normal saline, and administered IV morphine and Zofran. After approximately 30 minutes, the patient was administered a GI cocktail without relief. He was then administered IV Dilaudid for additional pain relief. Review of labs shows a lipase of 3185. Patient also has a mildly elevated white count, hypokalemia, elevated LFTs and glucose is 133. CT of the abdomen and pelvis with IV contrast is consistent with acute pancreatitis. Upon reevaluation, the patient still rated his discomfort a 6 out of 10, and was administered additional IV Dilaudid and a banana bag. Findings were discussed with the patient; I did recommend admission, especially given that the patient is a heavy drinker and that significantly increased risk for delirium tremens from alcohol withdrawal. The patient was in agreement with admission. The case was also discussed with Dr. Olivarez, ED attending physician, as well as Dr. Conteh, [facility] Hospitalist. Please see his dictation for further treatment and final disposition. Administered Medications Hydromorphone HCl (Hydromorphone Inj 0.5 Mg/0.5 Ml Syr) 0.5 mg IV Q30M PRN PRN Reason: Pain Stop: 02/07/20 16:12 Last Admin: 01/24/20 16:36 Dose: 0.5 mg Documented by: [id number] Potassium Chloride 20 meq/ (Lactated Ringer's) 1,010 mls @ 250 mls/hr IV .Q4H3M RODRIGUE Stop: 02/23/20 16:29 Last Admin: 01/24/20 17:30 Dose: 250 mls/hr Documented by: [id number] Lorazepam (Ativan) 1 mg in 2 mls @ 2 mls/min IV ONE PRN; Protocol PRN Reason: EtoH Withdrawal AWSS 6-10 Stop: 02/23/20 18:33 Last Admin: 01/24/20 19:27 Dose: 2 mls/min Documented by: [id number] Folic Acid 1 mg/ Syringe 10 mls @ 5 mls/min IV QAM RODRIGUE Stop: 02/23/20 18:59 Last Admin: 01/24/20 19:27 Dose: 5 mls/min Documented by: [id number] Thiamine HCl 200 mg/ Sodium (Chloride) 52 mls @ 210 mls/hr IV BID RODRIGUE Stop: 02/23/20 20:59 Last Infusion: 01/24/20 19:42 Dose: 0 mls/hr Documented by: [id number] Admin: 01/24/20 19:27 Dose: 210 mls/hr Documented by: [id number] Discontinued Medications Al Hydrox/Mg Hydrox/Simethicone (Gi Cocktail Ed Use) 1 dose PO ONE ONE Stop: 01/24/20 13:55 Last Admin: 01/24/20 14:25 Dose: 1 dose Documented by: [id number] Gabapentin (Gabapentin 600 Mg Tab) 1,200 mg PO NOW ONE Stop: 01/24/20 18:48 Last Admin: 01/24/20 19:26 Dose: 1,200 mg Documented by: [id number] Hydromorphone HCl (Hydromorphone Inj 1 Mg/Ml Syringe) 1 mg IV NOW STA Stop: 01/24/20 14:40 Last Admin: 01/24/20 14:45 Dose: 1 mg Documented by: [id number] Hydromorphone HCl (Hydromorphone Inj 0.5 Mg/0.5 Ml Syr) 0.5 mg IV NOW STA Stop: 01/24/20 15:37 Last Admin: 01/24/20 16:00 Dose: 0.5 mg Documented by: [id number] Sodium Chloride (Nss 1000ml) 1,000 mls @ 999 mls/hr IV .Q1H1M ONE Stop: 01/24/20 14:54 Last Infusion: 01/24/20 15:40 Dose: 0 mls/hr Documented by: [id number] Admin: 01/24/20 14:25 Dose: 999 mls/hr Documented by: [id number] Multivitamins 10 ml/ Thiamine HCl 100 mg/ Folic Acid 1 mg/Sodium Chloride 1,011.2 mls @ 1,011.2 mls/hr IV .Q1H ONE Stop: 01/24/20 16:35 Last Infusion: 01/24/20 17:22 Dose: 0 mls/hr Documented by: [id number] Admin: 01/24/20 16:17 Dose: 1,011.2 mls/hr Documented by: [id number] Lactated Ringer's (Lr) 1,000 mls @ 250 mls/hr IV .Q4H RODRIGUE Stop: 02/23/20 16:14 Last Infusion: 01/24/20 20:05 Dose: 0 mls/hr Documented by: [id number] Admin: 01/24/20 16:36 Dose: 250 mls/hr Documented by: [id number] Ioversol (Ioversol 100ml) 94 ml IV ONCE ONE Stop: 01/24/20 15:01 Last Admin: 01/24/20 15:00 Dose: 94 ml Documented by: [id number] Labetalol HCl (Labetalol Hcl Iv 5 Mg/Ml 20ml) 10 mg IV NOW STA Stop: 01/24/20 17:53 Last Admin: 01/24/20 19:26 Dose: 10 mg Documented by: [id number] Cosigned by: [id number] Morphine Sulfate (Morphine Sulfate 4 Mg/Ml 1 Ml Carp\Vial) 4 mg IV NOW STA Stop: 01/24/20 13:55 Last Admin: 01/24/20 14:25 Dose: 4 mg Documented by: [id number] Ondansetron HCl (Ondansetron Inj 2 Mg/Ml 2 Ml Vial) 4 mg IV NOW STA Stop: 01/24/20 13:55 Last Admin: 01/24/20 14:25 Dose: 4 mg Documented by: [id number] Medical Decision Making Medical Records Attestation: I reviewed the patient's medical records. Home Medications Current Medication List: was personally reviewed by me Laboratory Data Attestation: I reviewed the patient's lab results. Result diagrams: 01/24/20 14:14 01/24/20 14:14 Lab Results 01/24/20 01/24/20 Range/Units 14:14 14:14 WBC 12.14 H (4.8-10.8) K/uL RBC 5.14 (4.7-6.1) M/uL Hgb 16.4 (14.0-18.0) g/dL Hct 46.5 (42-52) % MCV 90.5 (80-100) fL MCH 31.9 (25-34) pg MCHC 35.3 (32-36) g/dL RDW Std Deviation 40.8 (36.4-46.3) fL RDW Coeff of Colin 12.2 (11.5-14.5) % Plt Count 237 (130-400) K/uL MPV 10.8 H (7.4-10.4) fL Immature Gran % (Auto) 0.3 % Neut % (Auto) 88.6 % Lymph % (Auto) 4.7 % Hudson % (Auto) 6.3 % Eos % (Auto) 0.0 % Baso % (Auto) 0.1 % Neut # (Auto) 10.75 H (1.4-6.5) K/uL Lymph # (Auto) 0.57 L (1.2-3.4) K/uL Hudson # (Auto) 0.77 H (0.11-0.59) K/uL Eos # (Auto) 0.00 (0-0.5) K/uL Baso # (Auto) 0.01 (0-0.2) K/uL Immature Gran # (Auto) 0.04 H (0.00-0.02) K/uL Sodium 138 (136-145) mmol/L Potassium 3.4 L (3.5-5.1) mmol/L Chloride 104 (98-107) mmol/L Carbon Dioxide 23 (21-32) mmol/L Anion Gap 11.0 (3-11) BUN 12 (7-18) mg/dl Creatinine 1.09 (0.6-1.4) mg/dl Est Cr Clr Drug Dosing 114.5 ml/min Est GFR ( Amer) 101.4 Est GFR (Non-Af Amer) 87.5 BUN/Creatinine Ratio 11.4 (10-20) Glucose 133 H (70-99) mg/dl Calcium 9.6 (8.5-10.1) mg/dl Magnesium 2.1 (1.8-2.4) mg/dl Total Bilirubin 0.9 (0.2-1) mg/dl AST 40 H (15-37) U/L ALT 82 H (12-78) U/L Alkaline Phosphatase 112 (45-117) U/L Total Protein 8.6 H (6.4-8.2) gm/dl Albumin 4.1 (3.4-5.0) gm/dl Globulin 4.5 H (2.5-4.0) gm/dl Albumin/Globulin Ratio 0.9 (0.9-2) Lipase 3185 H (73-393) U/L Imaging Data Attestation: I personally reviewed and interpreted this imaging study as fol lows: My Impression: My interpretation of the CT with IV contrast of the abdomen and pelvis shows evidence for acute pancreatitis. No obvious bowel obstruction, fr ee air, diverticulitis, appendicitis or gallstones appreciated. Gallbladder ultrasound did not show evidence for cholecystitis, gallstones or common bile duct dilatation. Radiologist report was also reviewed. Radiologist's Impression: CT OF THE ABDOMEN AND PELVIS WITH CONTRAST CLINICAL HISTORY: Abdominal pain. COMPARISON STUDY: CT of the abdomen and pelvis June 27, 2016. Abdominal series October 24, 2018. TECHNIQUE: Following IV administration of 94 mL of Optiray-320, axial images of the abdomen and pelvis were obtained from the lung bases to the proximal femurs. Images were reviewed in the axial, sagittal, and coronal planes. IV contrast was administered without complication. Automated exposure control was utilized for the study. A dose lowering technique was utilized adhering to the principles of ALARA. CT DOSE: 533.80 mGy.cm FINDINGS: A small hiatal hernia is noted. There is fatty infiltration of the liver. Mild hepatomegaly is noted. No hepatic lesions are present. There is no biliary or pancreatic ductal dilatation. Mild splenomegaly is noted. The adrenal glands and kidneys are unremarkable. Note is made of moderate infiltration and fluid centered on the pancreatic head and uncinate process. The pancreas enhances homogeneously. There are no peripancreatic fluid collections. Splenic vein is patent. No pseudoaneurysm is identified on this non-CTA exam. There is no evidence for a bowel obstruction. The appendix is normal. Left lower quadrant mesh from hernia repair is noted. Bladder is mildly distended. There is no lymphadenopathy. No suspicious osseous lesions are noted. 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 IMPRESSION: 1. Moderate infiltration and fluid centered on the pancreatic head and uncinate process consistent with acute pancreatitis. No peripancreatic fluid collections. No biliary ductal dilatation. 2. Fatty infiltration of the liver and hepatomegaly. 3. Avascular necrosis of the bilateral femoral heads without collapse. ULTRASOUND RIGHT UPPER QUADRANT ABDOMEN CLINICAL HISTORY: Pancreatitis. COMPARISON STUDY: Abdominal CT performed the same day 01/24/2020 TECHNIQUE: Real-time, grayscale, and color flow sonography of the right upper quadrant of the abdomen was performed. Images are reviewed in the transverse and longitudinal planes. FINDINGS: Liver: The liver is enlarged and demonstrates heterogeneously increased echotexture consistent with hepatic steatosis. Fatty sparing is noted adjacent to gallbladder fossa. There is no intrahepatic biliary ductal dilatation. The main portal vein is patent. Gallbladder: The gallbladder is normal in appearance. No gallstones are identified. There is no gallbladder wall thickening or pericholecystic fluid. A sonographic Hawkins's sign is reportedly absent. The common bile duct measures up to 0.3 cm in diameter. Pancreas: Visualized portions of the pancreatic head and body are grossly normal in appearance but not well evaluated due to overlying bowel gas. The splenic vein is patent. Right kidney: Survey images of the right kidney demonstrate normal size and echotexture. There is mild fullness of the renal pelvis. No hydronephrosis is seen. Ascites: None. IMPRESSION: 1. The gallbladder is normal in appearance. No gallstones are identified. 2. Hepatomegaly and hepatic steatosis. Blood Pressure Blood Pressure Findings: Elevated blood pressure MDM Narrative Patient presents to the emergency department with complaint of abdominal pain, nausea and vomiting. Work-up today does show evidence for acute pancreatitis, likely secondary to chronic alcohol abuse. He also has elevated liver transaminases from alcohol abuse. Work-up today is not suggestive of cholecystitis or bowel obstruction, diverticulitis, appendicitis or bowel perforation. I do not suspect acute cardiopulmonary etiologies. Impression & Plan Pancreatitis, Alcoholism, Transaminitis Discharge Plan Visit Data Chief Complaint: Abdominal Pain Stated Complaint: STOMACH PAIN, NAUSEA ED Provider: Pa Olivarez ED Midlevel Provider: Oral Muller Discharge Problem: Pancreatitis, Alcoholism, Transaminitis Patient Disposition: Admitted As Inpatient Discharge Instructions Interventions: ED Discharge Assessment Last Done: 01/24/20 19:39 Discharge Problem: Pancreatitis Qualifiers: Chronicity: acute Pancreatitis type: alcohol induced Acute pancreatitis complication: unspecified Qualified Code(s): K85.20 - Alcohol induced acute panc reatitis without necrosis or infection
[2020-01-24 14:25] LABS: Basophils # (auto) 0.01 K/uL (0-0.2); Basophils % (auto) 0.1 %; Hematocrit (blood only) 46.5 % (42-52); Hemoglobin 16.4 g/dL (14.0-18.0); Immature Granulocytes # (auto) 0.04 K/uL (0.00-0.02); Immature Granulocytes % (auto) 0.3 %; Lymphocytes # (auto) 0.57 K/uL (1.2-3.4); Lymphocytes % (auto) 4.7 %; Mean Corpuscular Hemoglobin 31.9 pg (25-34); Mean Corpuscular Hgb Conc 35.3 g/dL (32-36); Mean Corpuscular Volume 90.5 fL (80-100); Mean Platelet Volume 10.8 fL (7.4-10.4); Monocytes # (auto) 0.77 K/uL (0.11-0.59); Monocytes % (auto) 6.3 %; Neutrophils # (auto) 10.75 K/uL (1.4-6.5); Neutrophils % (auto) 88.6 %; Platelet Count 237 K/uL (130-400); RDW Coefficient of Variation 12.2 % (11.5-14.5); RDW Standard Deviation 40.8 fL (36.4-46.3); Red Blood Count 5.14 M/uL (4.7-6.1); White Blood Count 12.14 K/uL (4.8-10.8)
[2020-01-24] MEDS ORDERED: HYDROmorphone INJ 1 MG/ML SYRINGE IV STA (14:39)
[2020-01-24 14:46] LABS: Albumin Level 4.1 gm/dl (3.4-5.0); BUN Creatinine Ratio 11.4 (10-20); Calcium 9.6 mg/dl (8.5-10.1); Creatinine Clr Calc Pharmacy 114.5 ml/min; Est GFR (African American) 101.4; Est GFR (Non-African American) 87.5; Potassium 3.4 mmol/L (3.5-5.1)
[2020-01-24 14:49] LABS: Albumin Globulin Ratio 0.9 (0.9-2); Bilirubin,Total 0.9 mg/dl (0.2-1); Globulin 4.5 gm/dl (2.5-4.0); Total Protein 8.6 gm/dl (6.4-8.2)
[2020-01-24] MEDS ORDERED: IOVERSOL 100ml IV ONE (15:00)
--- NOTE | 2020-01-24 15:14 | CT Scan Report ---
CT OF THE ABDOMEN AND PELVIS WITH CONTRAST CLINICAL HISTORY: Abdominal pain. COMPARISON STUDY: CT of the abdomen and pelvis June 27, 2016. Abdominal series October 24, 2018. TECHNIQUE: Following IV administration of 94 mL of Optiray-320, axial images of the abdomen and pelvi s were obtained from the lung bases to the proximal femurs. Images were reviewed in the axial, sagitt al, and coronal planes. IV contrast was administered without complication. Automated exposure contro l was utilized for the study. A dose lowering technique was utilized adhering to the principles of A DIDI. CT DOSE: 533.80 mGy.cm FINDINGS: A small hiatal hernia is noted. There is fatty infiltration of the liver. Mild hepatomegaly is noted. No hepatic lesions are present. There is no biliary or pancreatic ductal dilatation. Mild splenomegaly is noted. The adrenal glands and kidneys are unremarkable. Note is made of moderate infi ltration and fluid centered on the pancreatic head and uncinate process. The pancreas enhances homoge neously. There are no peripancreatic fluid collections. Splenic vein is patent. No pseudoaneurysm is identified on this non-CTA exam. There is no evidence for a bowel obstruction. The appendix is normal . Left lower quadrant mesh from hernia repair is noted. Bladder is mildly distended. There is no lymp hadenopathy. No suspicious osseous lesions are noted. There is avascular necrosis of the bilateral fe moral heads without collapse. IMPRESSION: 1. Moderate infiltration and fluid centered on the pancreatic head and uncinate process consistent wi th acute pancreatitis. No peripancreatic fluid collections. No biliary ductal dilatation. 2. Fatty infiltration of the liver and hepatomegaly. 3. Avascular necrosis of the bilateral femoral heads without collapse. ACT 112: Negative or not required by law. Electronically signed by: Priyank Hu M.D. 01/24/2020 3:12 PM
[2020-01-24] MEDS ORDERED: HYDROmorphone INJ 0.5 MG/0.5 ML SYR IV STA (15:36)
[2020-01-24] MEDS ORDERED: MULTI-VITAMIN INFUSION 10 ML, THIAMINE HCL 100 MG, FOLIC ACID 1 MG in SODIUM CHLORIDE 0... IV ONE (15:36)
--- NOTE | 2020-01-24 15:41 | History & Physical Report ---
Date of Service January 24, 2020 Assessment & Plan (1) Acute pancreatitis: 2nd to heavy alcohol use (12+ beers/day). Doubt gallstones but will obtain RUQ u/s to rule out such to be complete. Doubt hypertriglyceridemia but will check fasting trigs in am. Calcium wnl. No recent viral symptoms to suggest viral-induced pancreatitis. Plan: * LR at 250cc/hr first 24 hours, then 200cc/hr thereafter * NPO * pain control with IV dilaudid prn * GI prophy with pepcid IV * DVT proph with lovenox (2) Alcoholism: At high risk of alcohol withdrawal. Place on alcohol withdrawal protocol including gabapentin taper, ativan IV/PO prn, and withdrawal scoring per protocol. High-dose thiamine 200mg IV BID. Folic acid 1mg IV daily. MVI daily. Patient, in the presence of his , admitted he has a problem with alcohol and does wish to "do something about it." Later in his stay we can discuss outpatient and inpatient rehab options. Place on telemetry due to high risk of withdrawal seizures, high blood pressure, and DTs. (3) GERD (gastroesophageal reflux disease): IV pepcid BID. (4) Hypokalemia: Replace -- add KCL to IVF. Check K in am. Check mag level now. (5) Transaminitis: Most likely due to alcoholism. Serial LFTs. RUQ u/s to look for cirrhosis changes. (6) Tobacco use: Nicoderm patch 7mg/day. Uses dip on regular basis. (7) Fatty liver: As seen on CT abd/pelvis. Alcohol abstinence will be vital. Check triglycerides am. (8) Elevated BP without diagnosis of hypertension: Uncertain if due to severe abdominal pain, early withdrawal from etoh, or has pre-existing HTN -- or combination of factors. Will observe for now. However, if pain is controlled and systolic BPs remain >180-190 then treatment likely deserved. Will place order for lopressor 5mg IV q6h prn. Patient to be placed on telemetry. (9) Hyperglycemia: Check hemoglobin a1c in am to screen for early DM or pre-DM. (10) DVT prophylaxis: lovenox 40mg daily updated at bedside History of Present Illness Chief Complaint: abdominal pain Primary Care Provider: NEVA Hollingsworth 34yo male with history of alcohol abuse who presents with severe periumbilical abdominal pain starting when he woke up at 0730 this am. Pain is 10/10. Numerous episodes of emesis. Had normal bowel movement this am but this did not relieve the pain. Pain feels like "someone is ripping my guts out." No RUQ or LUQ pain. Mild low back pain. No cough. Had mild dyspnea this am when the abdominal pain was severe. Had panic attack while waiting in the ER waiting room. CT abd/pelvis with pancreatitis, and lipase is elevated. Patient admits to heavy alcohol use. On most days he drinks twelve 16-ounce beers. He had alcohol-induced pancreatitis 2 years ago. 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 Pancreatitis 2018 Surgical History H/O hernia repair left inguinal hernia x 2; umbilical; Family History Mother Breast cancer Father No problems noted. Grandfather (Paternal) Myocardial infarction Stroke Social History Smoking Status: Former smoker Tobacco Type: Smokeless Tobacco (Dip or Chew) Age Started Using Tobacco: 14; Smoking End Date: 2010; Second Hand Exposure: Yes; Do You Dip or Chew Tobacco: Yes; Tobacco Cessation Education Requested by Patient: No Hx Alcohol Use: Yes Alcohol type: beer Alcohol Intake Frequency Comment: 12 beers a day (16oz each time) Hx Substance Use: No Preferred Language: Norwegian Communication Ability: Effective Motor Vehicle Technician Required: No Beliefs That Will Affect Care: None marital status: Current Living Situation: Spouse current occupational status: employed 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 How many Children do You have: 1 Other Information That Helps Us Care for You: No other: originally from [place] Feels Safe at Home: Yes Safety Concerns: Feels Safe At This Time Assistive Devices: None Review of Systems Constitutional: + chills; no fever and no anorexia Eyes: no worsening vision Ear, Nose, Mouth, Throat: no nasal congestion and no sore throat no loss of taste or smell Respiratory: + dyspnea (when he had abdominal pain ); no cough Cardiovascular: no chest pain Gastrointestinal: + abdominal pain, + nausea and + vomiting; no constipation, no diarrhea/loose stools and no blood in stools Genitourinary: no dysuria Musculoskeletal: + joint pain (knees ) Integumentary: no rash Neurologic: no loss of sensation Psychiatric: no depression and no anxiety Endocrine: no diabetes Hematologic / Lymphatic: no easy bleeding and no easy bruising Physical Exam Constitutional: + acute distress (due to abd pain ) and + ill appearing; no altered mental status Eyes: PERRL ENMT: Mouth: + dry oral mucous membranes and + poor dentition Neck: trachea midline, no thyromegaly Respiratory: normal respiratory effort, lungs clear to auscultation Cardiovascular: Rate/Rhythm: regular rhythm and + tachycardic Heart Sounds: normal S1 and normal S2; no murmur Vessels: posterior tibial pulses present and dorsalis pedis pulses present; no JVD Extremities: no edema Gastrointestinal (Abdomen): Inspection/Auscultation: + abdomen distended (mild) and normal bowel sounds (decreased ) Percussion/Palpation: + abdomen tender (periumbilical region ); no guarding, abdomen not rigid and no hepatosplenomegaly Musculoskeletal: no cyanosis or clubbing, extremities motor strength 5/5 Skin: no rashes, warm and dry tattoos present Neurologic: deep tendon reflexes 2+ bilaterally and moves all extremities; no focal motor deficits Psychiatric: Orientation: alert and oriented x 3 Mood: + anxious mood Lymphatic: no cervical lymphadenopathy Results & Data Results & Data ([facility]) Vital Signs (Past 12 Hours) Vital Signs Temp Pulse Resp BP Pulse Ox 01/24/20 12:13 36.7 C 105 H 16 225/88 H 100 Laboratory Results Laboratory Results - last 24 hr 01/24/20 01/24/20 14:14 14:14 WBC 12.14 H RBC 5.14 Hgb 16.4 Hct 46.5 MCV 90.5 MCH 31.9 MCHC 35.3 RDW Std Deviation 40.8 RDW Coeff of Colin 12.2 Plt Count 237 MPV 10.8 H Immature Gran % (Auto) 0.3 Neut % (Auto) 88.6 Lymph % (Auto) 4.7 [place] % (Auto) 6.3 Eos % (Auto) 0.0 Baso % (Auto) 0.1 Neut # (Auto) 10.75 H Lymph # (Auto) 0.57 L [place] # (Auto) 0.77 H Eos # (Auto) 0.00 Baso # (Auto) 0.01 Immature Gran # (Auto) 0.04 H Sodium 138 Potassium 3.4 L Chloride 104 Carbon Dioxide 23 Anion Gap 11.0 BUN 12 Creatinine 1.09 Est Cr Clr Drug Dosing 114.5 Est GFR ( Amer) 101.4 Est GFR (Non-Af Amer) 87.5 BUN/Creatinine Ratio 11.4 Glucose 133 H Calcium 9.6 Total Bilirubin 0.9 AST 40 H ALT 82 H Alkaline Phosphatase 112 Total Protein 8.6 H Albumin 4.1 Globulin 4.5 H Albumin/Globulin Ratio 0.9 Lipase [address] abd/pelvis: IMPRESSION: 1. Moderate infiltration and fluid centered on the pancreatic head and uncinate process consistent with acute pancreatitis. No peripancreatic fluid collections. No biliary ductal dilatation. 2. Fatty infiltration of the liver and hepatomegaly. 3. Avascular necrosis of the bilateral femoral heads without collapse. Code Status & VTE Plan Code Status full VTE Prophylaxis Plan VTE Prophylaxis will be ordered: Yes PG Care Time/CCT Total # of Minutes Spent Total Time Spent with Patient: Total time spent is greater than 50% in coordination of care (as documented) at patient's floor/unit and/or counseling patient: Coding Level of Care Code 63608 Initial Inpt Care Lvl 3 Diagnoses Acute pancreatitis K85.20 Acute pancreatitis complication: no infection or necrosis Pancreatitis type: alcohol induced Alcoholism F10.20 GERD (gastroesophageal reflux disease) K21.9 Esophagitis presence: esophagitis presence not specified Hypokalemia E87.6 Transaminitis R74.01 Tobacco use Z72.0 Fatty liver K76.0 Elevated BP without diagnosis of hypertension R03.0 Hyperglycemia R73.9 DVT prophylaxis Z29.9 (1) GERD (gastroesophageal reflux disease) Esophagitis presence: esophagitis presence not specified Qualified Code(s): K21.9 - Gastro-esophageal reflux disease without esophagitis (2) Acute pancreatitis Acute pancreatitis complication: no infection or necrosis Pancreatitis type: alcohol induced Qualified Code(s): K85.20 - Alcohol induced acute pancreatitis without necrosis or infection
[2020-01-24] MEDS ORDERED: LACTATED RINGER'S 1,000 ML IV SCH (16:15)
[2020-01-24] MEDS: HYDROmorphone INJ 0.5 MG/0.5 ML SYR IV PRN ×3 (16:36→23:53)
[2020-01-24 16:51] LABS: Magnesium 2.1 mg/dl (1.8-2.4)
--- NOTE | 2020-01-24 17:23 | Ultrasound Report ---
ULTRASOUND RIGHT UPPER QUADRANT ABDOMEN CLINICAL HISTORY: Pancreatitis. COMPARISON STUDY: Abdominal CT performed the same day 01/24/2020 TECHNIQUE: Real-time, grayscale, and color flow sonography of the right upper quadrant of the abdomen was performed. Images are reviewed in the transverse and longitudinal planes. FINDINGS: Liver: The liver is enlarged and demonstrates heterogeneously increased echotexture consistent with h epatic steatosis. Fatty sparing is noted adjacent to gallbladder fossa. There is no intrahepatic bili sho ductal dilatation. The main portal vein is patent. Gallbladder: The gallbladder is normal in appearance. No gallstones are identified. There is no gallb ladder wall thickening or pericholecystic fluid. A sonographic Hawkins's sign is reportedly absent. Th e common bile duct measures up to 0.3 cm in diameter. Pancreas: Visualized portions of the pancreatic head and body are grossly normal in appearance but no t well evaluated due to overlying bowel gas. The splenic vein is patent. Right kidney: Survey images of the right kidney demonstrate normal size and echotexture. There is mil d fullness of the renal pelvis. No hydronephrosis is seen. Ascites: None. IMPRESSION: 1. The gallbladder is normal in appearance. No gallstones are identified. 2. Hepatomegaly and hepatic steatosis. ACT 112: Negative or not required by law. Electronically signed by: Ritesh Cabrera M.D. 01/24/2020 5:22 PM
[2020-01-24] MEDS: POTASSIUM CHLORIDE 20 MEQ in LACTATED RINGER'S 1,000 ML IV SCH ×2 (17:30→21:33)
[2020-01-24] MEDS ORDERED: LABETALOL HCL IV 5 MG/ML 20ML IV STA (17:52)
[2020-01-24 18:29] LABS: Appearance Urine Clear (Clear); Bilirubin Urine Negative (Negative); Blood Urine Negative (Negative); Color Urine Yellow; Glucose Urine UA 1+ (Negative); Ketones Urine Trace (Negative); Leukocyte Esterase Urine Negative (Negative); Nitrite Urine Negative (Negative); Protein Urine Negative (Negative); Urobilinogen Urine Negative (Negative); pH Urine 6.5 (4.5-7.5)
[2020-01-24] MEDS ORDERED: GABAPENTIN 1200MG ALCOHOL WITHDRAWAL LOAD PO STA (18:34)
[2020-01-24] MEDS ORDERED: LORazepam 1 MG TAB PO PRN (18:34)
[2020-01-24] MEDS ORDERED: METOPROLOL TARTRATE 1 MG/ML VIAL IV PRN (18:45)
[2020-01-24] MEDS ORDERED: ONDANSETRON INJ 2 MG/ML 2 ML VIAL IV PRN (18:45)
[2020-01-24] MEDS ORDERED: GABAPENTIN 600 MG TAB PO ONE (18:47)
[2020-01-24] MEDS: LORazepam 1 MG/2 ML VIAL IV PRN (19:27)
[2020-01-24] MEDS: THIAMINE HCL 200 MG in SODIUM CHLORIDE 0.9% 50 ML IV SCH (19:27)
[2020-01-24] MEDS: FOLIC ACID 1 MG in SYRINGE 9.8 ML IV SCH (19:27)
[2020-01-24] MEDS ORDERED: THIAMINE HCL 200 MG in SYRINGE 8 ML IV SCH (21:00)
[2020-01-24] MEDS: NICOTINE 7 MG/24 HR TDSY TD SCH (21:32)
[2020-01-24] MEDS: FAMOTIDINE 20 MG in SYRINGE 3 ML IV SCH (21:33)
[2020-01-24] MEDS: GABAPENTIN 600 MG TAB PO SCH (23:54)
[2020-01-25] MEDS: POTASSIUM CHLORIDE 20 MEQ in LACTATED RINGER'S 1,000 ML IV SCH ×6 (02:00→21:22)
[2020-01-25] MEDS: LORazepam 1 MG/2 ML VIAL IV PRN (04:24)
[2020-01-25] MEDS: GABAPENTIN 600 MG TAB PO SCH ×3 (06:13→21:26)
[2020-01-25 06:42] LABS: Basophils # (auto) 0.01 K/uL (0-0.2); Basophils % (auto) 0.1 %; Eosinophils # (auto) 0.06 K/uL (0-0.5); Eosinophils % (auto) 0.7 %; Hematocrit (blood only) 45.2 % (42-52); Hemoglobin 15.4 g/dL (14.0-18.0); Immature Granulocytes # (auto) 0.02 K/uL (0.00-0.02); Immature Granulocytes % (auto) 0.2 %; Lymphocytes # (auto) 1.19 K/uL (1.2-3.4); Lymphocytes % (auto) 14.2 %; Mean Corpuscular Hemoglobin 31.7 pg (25-34); Mean Corpuscular Hgb Conc 34.1 g/dL (32-36); Mean Platelet Volume 10.6 fL (7.4-10.4); Monocytes # (auto) 0.91 K/uL (0.11-0.59); Monocytes % (auto) 10.9 %; Neutrophils # (auto) 6.19 K/uL (1.4-6.5); Neutrophils % (auto) 73.9 %; Platelet Count 204 K/uL (130-400); RDW Coefficient of Variation 12.5 % (11.5-14.5); RDW Standard Deviation 42.7 fL (36.4-46.3); Red Blood Count 4.86 M/uL (4.7-6.1); White Blood Count 8.38 K/uL (4.8-10.8)
[2020-01-25 07:15] LABS: Albumin Globulin Ratio 0.8 (0.9-2); Albumin Level 3.2 gm/dl (3.4-5.0); Bilirubin,Total 0.9 mg/dl (0.2-1); Calcium 8.6 mg/dl (8.5-10.1); Creatinine Clr Calc Pharmacy 133.8 ml/min; Est GFR (African American) 127.8; Est GFR (Non-African American) 110.3; Total Protein 7.2 gm/dl (6.4-8.2)
[2020-01-25 07:34] LABS: Estimated Average Glucose 111 mg/dl; Hemoglobin A1C 5.5 % (4.5-5.6)
[2020-01-25] MEDS: HYDROmorphone INJ 0.5 MG/0.5 ML SYR IV PRN ×3 (08:31→21:24)
[2020-01-25] MEDS: THIAMINE HCL 200 MG in SODIUM CHLORIDE 0.9% 50 ML IV SCH ×2 (08:32→21:25)
[2020-01-25] MEDS: FAMOTIDINE 20 MG in SYRINGE 3 ML IV SCH ×2 (08:33→21:25)
[2020-01-25] MEDS: CEROVITE ADV FORMULA TAB PO SCH (08:33)
[2020-01-25] MEDS: NICOTINE 7 MG/24 HR TDSY TD SCH (08:33)
[2020-01-25] MEDS: FOLIC ACID 1 MG in SYRINGE 9.8 ML IV SCH (08:34)
[2020-01-25] MEDS: ENOXAPARIN INJ 40 MG/0.4 ML SYR SQ SCH ×2 (08:34→08:43)
[2020-01-25] MEDS ORDERED: cloNIDine HCL 0.1 MG TAB PO PRN (13:47)
--- NOTE | 2020-01-25 14:08 | Hospitalist Progress Note ---
Date of Service January 25, 2020 Assessment & Plan (1) Acute pancreatitis: Secondary to acute alcohol use Continue IV fluids at 250 an hour for maintenance We will advance liquid diet as tolerated Check repeat lipase in the morning Discussed need for complete abstinence of alcohol (2) Alcoholism: Functional alcoholic Approximate 12 beers per day Discussed with present Need for complete abstinence Continue thiamine, folic acid, multivitamin, gabapentin, lorazepam Follow closely for evidence of withdrawal Discussed need for outpatient alcohol rehabilitation as a minimum. 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 Check Vit D 1,25 Dihydroxy, D2, D3 levels Continue MVI Need for complete abstinence of alcohol Outpatient follow-up (5) Elevated BP without diagnosis of hypertension: Multifactorial including acute pancreatitis and alcohol withdrawal Will start clonidine as needed every 6 hours No functional heart disease identified Outpatient follow-up with primary care (6) Tobacco use: Snuff use Nicotine patch in place Advised against using snuff with nicotine patch Need for complete abstinence of tobacco products (7) DVT prophylaxis: Ambulate as tolerated We will start heparin 5000 units every 12 hours Please refer to Dr. Byers's addendum for further recommendations. Admission and Anticipated Discharge Date Admission Date: January 24, 2020 Subjective Attending: Dr. Cain Byers This is a 34-year-old male. He was admitted yesterday for acute pancreatitis with abdominal pain. He admits to alcoholism and drinks up to 12 cans of beer per day. He had an elevated lipase and is being treated for acute pancreatitis. The patient's is present at the time of my interview and examination. Patient reports that his pain is significant improved. He has no further nausea or vomiting. He denies any diarrhea. He has no fever chills. He is now admitting to be hungry and is requesting a diet. He has no other acute complaints. Review of Systems Review of Systems: All systems reviewed & are unremarkable except as noted in Subjective Physical Exam Physical Exam: GENERAL : No acute distress. Pleasant and talkative EYES: No icterus, gaze conjugate. Pupils equal round and reactive to light NOSE: No evidence of epistaxis MOUTH: No lesions or candidiasis. Mucosa is moist NECK: Supple LUNGS: CTA B/L, no wheezes, rales or rhonchi. Good inspiratory effort. HEART: Regular, tachycardic in the 1 teens. No appreciation of ectopy or murmur ABDOMEN: Soft, NT, ND, BS Present. Some very light tenderness with palpation and no guarding. EXTREMITIES: No LE edema, pedal pulses intact and equal bilaterally NEURO: A&OX3. Some very minimal asterixis on the right hand. Otherwise, cranial nerves II through XII grossly intact without focal deficit. Results & Data Results & Data ([facility]) Vital Signs (Past 12 Hours) Vital Signs Temp Pulse Pulse Resp BP Pulse Ox 01/25/20 12:11 37.4 C 117 H 18 175/104 H 96 01/25/20 07:34 37 C 117 H 18 168/103 H 95 01/25/20 07:17 120 H 01/25/20 04:17 36.9 C 117 H 19 171/125 H 94 Laboratory Results 01/25/20 06:16 01/25/20 06:16 Laboratory Tests 01/24/20 01/25/20 14:14 06:16 Lipase 3[address] H [address] OF THE ABDOMEN AND PELVIS WITH CONTRAST CLINICAL HISTORY: Abdominal pain. COMPARISON STUDY: CT of the abdomen and pelvis June 27, 2016. Abdominal series October 24, 2018. TECHNIQUE: Following IV administration of 94 mL of Optiray-320, axial images of the abdomen and pelvis were obtained from the lung bases to the proximal femurs. Images were reviewed in the axial, sagittal, and coronal planes. IV contrast was administered without complication. Automated exposure control was utilized for the study. A dose lowering technique was utilized adhering to the principles of ALARA. CT DOSE: 533.80 mGy.cm FINDINGS: A small hiatal hernia is noted. There is fatty infiltration of the liver. Mild hepatomegaly is noted. No hepatic lesions are present. There is no biliary or pancreatic ductal dilatation. Mild splenomegaly is noted. The adrenal glands and kidneys are unremarkable. Note is made of moderate infiltration and fluid centered on the pancreatic head and uncinate process. The pancreas enhances homogeneously. There are no peripancreatic fluid collections. Splenic vein is patent. No pseudoaneurysm is identified on this non-CTA exam. There is no evidence for a bowel obstruction. The appendix is normal. Left lower quadrant mesh from hernia repair is noted. Bladder is mildly distended. There is no lymphadenopathy. No suspicious osseous lesions are noted. 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 IMPRESSION: 1. Moderate infiltration and fluid centered on the pancreatic head and uncinate process consistent with acute pancreatitis. No peripancreatic fluid collections. No biliary ductal dilatation. 2. Fatty infiltration of the liver and hepatomegaly. 3. Avascular necrosis of the bilateral femoral heads without collapse. Electronically signed by: Priyank Hu M.D. 01/24/2020 3:12 PM ULTRASOUND RIGHT UPPER QUADRANT ABDOMEN CLINICAL HISTORY: Pancreatitis. COMPARISON STUDY: Abdominal CT performed the same day 01/24/2020 TECHNIQUE: Real-time, grayscale, and color flow sonography of the right upper quadrant of the abdomen was performed. Images are reviewed in the transverse and longitudinal planes. FINDINGS: Liver: The liver is enlarged and demonstrates heterogeneously increased echotexture consistent with hepatic steatosis. Fatty sparing is noted adjacent to gallbladder fossa. There is no intrahepatic biliary ductal dilatation. The main portal vein is patent. Gallbladder: The gallbladder is normal in appearance. No gallstones are identified. There is no gallbladder wall thickening or pericholecystic fluid. A sonographic Hawkins's sign is reportedly absent. The common bile duct measures up to 0.3 cm in diameter. Pancreas: Visualized portions of the pancreatic head and body are grossly normal in appearance but not well evaluated due to overlying bowel gas. The splenic vein is patent. Right kidney: Survey images of the right kidney demonstrate normal size and echotexture. There is mild fullness of the renal pelvis. No hydronephrosis is seen. Ascites: None. IMPRESSION: 1. The gallbladder is normal in appearance. No gallstones are identified. 2. Hepatomegaly and hepatic steatosis. Electronically signed by: Ritesh Cabrera M.D. 01/24/2020 5:22 PM PG Care Time/CCT Total # of Minutes Spent Total Time Spent with Patient: Total time spent is greater than 50% in coordination of care (as documented) at patient's floor/unit and/or counseling p atient: 45 minutes Coding Level of Care Code 33377 Subseq Hosp Care Lvl 3 Diagnoses Acute pancreatitis K85.20 Acute pancreatitis complication: no infection or necrosis Pancreatitis type: alcohol induced Alcoholism F10.20 GERD (gastroesophageal reflux disease) K21.9 Esophagitis presence: esophagitis presence not specified Avascular necrosis of bone M87.00 Elevated BP without diagnosis of hypertension R03.0 Tobacco use Z72.0 DVT prophylaxis Z29.9 (1) GERD (gastroesophageal reflux disease) Esophagitis presence: esophagitis presence not specified Qualified Code(s): K21.9 - Gastro-esophageal reflux disease without esophagitis (2) Acute pancreatitis Acute pancreatitis complication: no infection or necrosis Pancreatitis type: alcohol induced Qualified Code(s): K85.20 - Alcohol induced acute pancreatitis without necrosis or infection
[2020-01-25] MEDS: HEPARIN SOD 5,000 UNIT/0.5 ML VIAL SQ SCH (21:25)
[2020-01-26] MEDS: POTASSIUM CHLORIDE 20 MEQ in LACTATED RINGER'S 1,000 ML IV SCH ×6 (01:37→20:14)
[2020-01-26] MEDS: GABAPENTIN 600 MG TAB PO SCH ×2 (05:38→17:44)
[2020-01-26 07:33] LABS: Basophils # (auto) 0.02 K/uL (0-0.2); Basophils % (auto) 0.2 %; Eosinophils # (auto) 0.11 K/uL (0-0.5); Eosinophils % (auto) 1.2 %; Hematocrit (blood only) 41.5 % (42-52); Hemoglobin 14.2 g/dL (14.0-18.0); Immature Granulocytes # (auto) 0.01 K/uL (0.00-0.02); Immature Granulocytes % (auto) 0.1 %; Lymphocytes # (auto) 1.61 K/uL (1.2-3.4); Lymphocytes % (auto) 17.4 %; Mean Corpuscular Hemoglobin 32.3 pg (25-34); Mean Corpuscular Hgb Conc 34.2 g/dL (32-36); Mean Corpuscular Volume 94.5 fL (80-100); Mean Platelet Volume 10.3 fL (7.4-10.4); Monocytes # (auto) 1.05 K/uL (0.11-0.59); Monocytes % (auto) 11.4 %; Neutrophils # (auto) 6.45 K/uL (1.4-6.5); Neutrophils % (auto) 69.7 %; Platelet Count 172 K/uL (130-400); RDW Coefficient of Variation 12.4 % (11.5-14.5); RDW Standard Deviation 42.9 fL (36.4-46.3); Red Blood Count 4.39 M/uL (4.7-6.1); White Blood Count 9.25 K/uL (4.8-10.8)
[2020-01-26] MEDS: HYDROmorphone INJ 0.5 MG/0.5 ML SYR IV PRN ×5 (07:36→22:57)
[2020-01-26] MEDS: NICOTINE 7 MG/24 HR TDSY TD SCH (07:37)
[2020-01-26] MEDS: CEROVITE ADV FORMULA TAB PO SCH (07:37)
[2020-01-26] MEDS: FOLIC ACID 1 MG in SYRINGE 9.8 ML IV SCH (07:37)
[2020-01-26] MEDS: HEPARIN SOD 5,000 UNIT/0.5 ML VIAL SQ SCH ×2 (07:50→20:14)
[2020-01-26] MEDS: FAMOTIDINE 20 MG in SYRINGE 3 ML IV SCH ×2 (07:53→20:14)
[2020-01-26] MEDS: THIAMINE HCL 200 MG in SODIUM CHLORIDE 0.9% 50 ML IV SCH ×2 (07:54→20:13)
[2020-01-26 08:08] LABS: BUN Creatinine Ratio 7.8 (10-20); Calcium 9.4 mg/dl (8.5-10.1); Est GFR (African American) 119.7; Est GFR (Non-African American) 103.3; Potassium 3.8 mmol/L (3.5-5.1)
[2020-01-26] MEDS: POLYETHYLENE (MIRALAX) 17 GM PACK PO PRN (11:11)
--- NOTE | 2020-01-26 15:51 | Hospitalist Progress Note ---
Date of Service January 26, 2020 Assessment & Plan (1) Acute pancreatitis: 2nd to heavy alcohol use (12+ beers/day). RUQ u/s on 01/23 without gallstones. Triglycerides were 230. No recent viral symptoms to suggest viral- induced pancreatitis. Plan: * LR at 250cc/hr * Pain control with IV dilaudid prn * GI prophy with pepcid IV * DVT proph with lovenox * Lipase improved on 01/25 to 800. * Advanced diet to full liquid on 01/25 AM with increase in pain. Back to clears for now. Otherwise continue plan. (2) Alcoholism: At high risk of alcohol withdrawal. Placed on alcohol withdrawal protocol including gabapentin taper, ativan IV/PO prn, and withdrawal scoring per protocol. High-dose thiamine 200mg IV BID. Folic acid 1mg IV daily. MVI daily. Patient, in the presence of his , admitted he has a problem with alcohol and does wish to "do something about it." Later in his stay we can discuss outpatient and inpatient rehab options. - Discussed again today that abstinence is crucial. No major signs/symptoms of withdrawal apart from mild tachycardia. (3) GERD (gastroesophageal reflux disease): IV pepcid BID. (4) Avascular necrosis of bone: (5) Elevated BP without diagnosis of hypertension: Uncertain if due to severe abdominal pain, early withdrawal from etoh, or has pre-existing HTN -- or combination of factors. Will observe for now. However, if pain is controlled and systolic BPs remain >180-190 then treatment likely deserved. Will place order for lopressor 5mg IV q6h prn. - Stable today. (6) Tobacco use: Nicoderm patch 7mg/day. Uses dip on regular basis. (7) DVT prophylaxis: Lovenox 40mg daily Admission and Anticipated Discharge Date Admission Date: January 24, 2020 Subjective Was feeling some better, and requested a bit more food. However, when we moved to full liquids, he had more abdominal pain and requested return to clear liquids. Reports no fevers/chills, chest pain, shortness of breath. Physical Exam Constitutional: WD/WN, vitals as above Eyes: EOM intact bilaterally; no conjunctival abnormality ENMT: external ear and nose normal, oropharynx normal Neck: trachea midline, no thyromegaly normal visual inspection Respiratory: normal respiratory effort, lungs clear to auscultation no respiratory distress Cardiovascular: Rate/Rhythm: regular rhythm and + tachycardic Heart Sounds: normal S1 and normal S2 Extremities: no edema Gastrointestinal (Abdomen): Inspection/Auscultation: abdomen normal to inspection and normal bowel sounds; abdomen not distended Percussion/Palpation: + abdomen tender (Epigastric region) and abdomen soft; no guarding and abdomen not rigid Musculoskeletal: no cyanosis or clubbing, extremities motor strength 5/5 Skin: no rashes, warm and dry Neurologic: moves all extremities and awake Psychiatric: Orientation: alert, oriented to person and cooperative Results & Data Results & Data ([facility]) Vital Signs (Past 12 Hours) Vital Signs Temp Pulse Resp BP Pulse Ox 01/26/20 11:00 18 156/96 H 105 H 01/26/20 08:00 37 C 109 H 18 121/78 93 PG Care Time/CCT Total # of Minutes Spent Total Time Spent with Patient: Total time spent is greater than 50% in coordination of care (as documented) at patient's floor/unit and/or counseling patient: Coding Level of Care Code 90984 Subseq Hosp Care Lvl 3 Diagnoses Acute pancreatitis K85.20 Pancreatitis type: alcohol induced Acute pancreatitis complication: no infection or necrosis Alcoholism F10.20 GERD (gastroesophageal reflux disease) K21.9 Esophagitis presence: esophagitis presence not specified Avascular necrosis of bone M87.00 Elevated BP without diagnosis of hypertension R03.0 Tobacco use Z72.0 DVT prophylaxis Z29.9 (1) Acute pancreatitis Pancreatitis type: alcohol induced Acute pancreatitis complication: no infection or necrosis Qualified Code(s): K85.20 - Alcohol induced acute pancreatitis without necrosis or infection (2) GERD (gastroesophageal reflux disease) Esophagitis presence: esophagitis presence not specified Qualified Code(s): K21.9 - Gastro-esophageal reflux disease without esophagitis
[2020-01-27] MEDS: POTASSIUM CHLORIDE 20 MEQ in LACTATED RINGER'S 1,000 ML IV SCH ×6 (01:18→22:27)
[2020-01-27] MEDS: HYDROmorphone INJ 0.5 MG/0.5 ML SYR IV PRN ×4 (04:11→16:24)
[2020-01-27] MEDS: GABAPENTIN 600 MG TAB PO SCH (06:30)
[2020-01-27 08:09] LABS: Basophils # (auto) 0.02 K/uL (0-0.2); Basophils % (auto) 0.2 %; Eosinophils # (auto) 0.15 K/uL (0-0.5); Eosinophils % (auto) 1.7 %; Hematocrit (blood only) 40.4 % (42-52); Hemoglobin 13.8 g/dL (14.0-18.0); Immature Granulocytes # (auto) 0.02 K/uL (0.00-0.02); Immature Granulocytes % (auto) 0.2 %; Lymphocytes % (auto) 17.8 %; Mean Corpuscular Hemoglobin 32.2 pg (25-34); Mean Corpuscular Hgb Conc 34.2 g/dL (32-36); Mean Corpuscular Volume 94.4 fL (80-100); Mean Platelet Volume 10.6 fL (7.4-10.4); Monocytes # (auto) 1.04 K/uL (0.11-0.59); Monocytes % (auto) 11.6 %; Neutrophils # (auto) 6.17 K/uL (1.4-6.5); Neutrophils % (auto) 68.5 %; Platelet Count 178 K/uL (130-400); RDW Standard Deviation 40.9 fL (36.4-46.3); Red Blood Count 4.28 M/uL (4.7-6.1)
[2020-01-27 08:36] LABS: BUN Creatinine Ratio 7.8 (10-20); Calcium 9.8 mg/dl (8.5-10.1); Est GFR (African American) 127.8; Est GFR (Non-African American) 110.3
[2020-01-27] MEDS: FOLIC ACID 1 MG in SYRINGE 9.8 ML IV SCH (08:46)
[2020-01-27] MEDS: CEROVITE ADV FORMULA TAB PO SCH (08:46)
[2020-01-27] MEDS: HEPARIN SOD 5,000 UNIT/0.5 ML VIAL SQ SCH ×3 (08:46→21:22)
[2020-01-27] MEDS: FAMOTIDINE 20 MG in SYRINGE 3 ML IV SCH ×2 (08:50→21:22)
[2020-01-27] MEDS: THIAMINE HCL 200 MG in SODIUM CHLORIDE 0.9% 50 ML IV SCH ×2 (08:51→22:27)
[2020-01-27] MEDS: NICOTINE 7 MG/24 HR TDSY TD SCH (10:15)
[2020-01-27] MEDS ORDERED: NALOXONE HCL 0.4 MG/1 ML VIAL/CARP IV PRN (18:02)
[2020-01-27] MEDS ORDERED: MoRPHine Bolus from PCA IV STA (18:15)
[2020-01-27] MEDS: MoRPHine SULFATE PCA 30 MG/30 ML IV PRN (20:58)
[2020-01-27] MEDS: SODIUM CHLORIDE 0.9% 1000ML 1,000 ML IV SCH (21:28)
--- NOTE | 2020-01-27 22:28 | Hospitalist Progress Note ---
Date of Service January 27, 2020 Assessment & Plan (1) Acute pancreatitis: 2nd to heavy alcohol use (12+ beers/day). RUQ u/s on 01/23 without gallstones. Triglycerides were 230. No recent viral symptoms to suggest viral- induced pancreatitis. Plan: * LR at 250cc/hr * Pain control with IV dilaudid prn; this will be switched to a morphine COSMETIC ACCOUNT COORDINATOR pump, calculated dose so continuos dose will be similar to the dose he was receiving with dilaudid. He will also have breakthrough pain COSMETIC ACCOUNT COORDINATOR doses avail able as well. * GI prophy with pepcid IV * DVT proph with lovenox * Lipase improved on 01/25 to 800. * Advanced diet to full liquid on 01/25 AM with increase in pain. Back to clears for now. Otherwise continue plan. (2) Alcoholism: At high risk of alcohol withdrawal. Placed on alcohol withdrawal protocol including gabapentin taper, ativan IV/PO prn, and withdrawal scoring per protocol. High-dose thiamine 200mg IV BID. Folic acid 1mg IV daily. MVI daily. Patient, in the presence of his , admitted he has a problem with alcohol and does wish to "do something about it." Later in his stay we can discuss outpatient and inpatient rehab options. - Discussed again today that abstinence is crucial. No major signs/symptoms of withdrawal apart from mild tachycardia. (3) GERD (gastroesophageal reflux disease): IV pepcid BID. (4) Avascular necrosis of bone: (5) Elevated BP without diagnosis of hypertension: Uncertain if due to severe abdominal pain, early withdrawal from etoh, or has pre-existing HTN -- or combination of factors. Will observe for now. However, if pain is controlled and systolic BPs remain >180-190 then treatment likely deserved. Will place order for lopressor 5mg IV q6h prn. - Stable today. (6) Tobacco use: Nicoderm patch 7mg/day. Uses dip on regular basis. (7) DVT prophylaxis: Lovenox 40mg daily Admission and Anticipated Discharge Date Admission Date: January 24, 2020 Subjective 34 yo male reports he continues to have abdominal pain, despite his labs improving. He reports his dilaudid, is not helping his pain. It only helps for a few minutes. Review of Systems Review of Systems: All systems reviewed & are unremarkable except as noted in HPI & below Physical Exam Physical Exam: Constitutional: WD/WN, vitals as above Eyes: EOM intact bilaterally; no conjunctival abnormality ENMT: external ear and nose normal, oropharynx normal Neck: trachea midline, no thyromegaly normal visual inspection Respiratory: normal respiratory effort, lungs clear to auscultation no respiratory distress Cardiovascular: Rate/Rhythm: regular rhythm and + tachycardic Heart Sounds: normal S1 and normal S2 Extremities: no edema Gastrointestinal (Abdomen): Inspection/Auscultation: abdomen normal to inspection and normal bowel sounds; abdomen not distended Percussion/Palpation: + abdomen tender (Epigastric region) and abdomen soft; no guarding and abdomen not rigid Musculoskeletal: no cyanosis or clubbing, extremities motor strength 5/5 Skin: no rashes, warm and dry Neurologic: moves all extremities and awake Psychiatric: Orientation: alert, oriented to person and cooperative Results & Data Results & Data ([facility]) Vital Signs (Past 12 Hours) Vital Signs Temp Pulse Pulse Pulse Resp BP BP 01/27/20 19:00 36.9 C 106 H 22 161/105 H 156/97 H 01/27/20 16:00 103 H 01/27/20 15:57 37.0 C 99 H 23 185/116 H 178/116 H 01/27/20 11:03 37.3 C 92 H 20 149/93 H Pulse Ox 01/27/20 19:00 95 01/27/20 16:00 01/27/20 15:57 97 01/27/20 11:03 95 PG Care Time/CCT Total # of Minutes Spent Total Time Spent with Patient: Total time spent is greater than 50% in coordination of care (as documented) at patient's floor/unit and/or counseling patient: Coding Level of Care Code 43802 Subseq Hosp Care Lvl 3 Diagnoses Acute pancreatitis K85.20 Acute pancreatitis complication: no infection or necrosis Pancreatitis type: alcohol induced Alcoholism F10.20 GERD (gastroesophageal reflux disease) K21.9 Esophagitis presence: esophagitis presence not specified Avascular necrosis of bone M87.00 Elevated BP without diagnosis of hypertension R03.0 Tobacco use Z72.0 DVT prophylaxis Z29.9 Time Spent (min) 35 (1) GERD (gastroesophageal reflux disease) Esophagitis presence: esophagitis presence not specified Qualified Code(s): K21.9 - Gastro-esophageal reflux disease without esophagitis (2) Acute pancreatitis Acute pancreatitis complication: no infection or necrosis Pancreatitis type: alcohol induced Qualified Code(s): K85.20 - Alcohol induced acute pancreatitis without necrosis or infection
[2020-01-28] MEDS ORDERED: GABAPENTIN 600 MG TAB PO SCH (06:00)
[2020-01-28] MEDS: POTASSIUM CHLORIDE 20 MEQ in LACTATED RINGER'S 1,000 ML IV SCH ×5 (06:10→21:54)
[2020-01-28] MEDS: HEPARIN SOD 5,000 UNIT/0.5 ML VIAL SQ SCH ×2 (08:23→21:05)
[2020-01-28] MEDS: CEROVITE ADV FORMULA TAB PO SCH (08:23)
[2020-01-28] MEDS: FOLIC ACID 1 MG in SYRINGE 9.8 ML IV SCH (08:23)
[2020-01-28] MEDS: NICOTINE 7 MG/24 HR TDSY TD SCH (08:24)
[2020-01-28] MEDS: FAMOTIDINE 20 MG in SYRINGE 3 ML IV SCH ×2 (08:25→21:03)
[2020-01-28] MEDS: THIAMINE HCL 200 MG in SODIUM CHLORIDE 0.9% 50 ML IV SCH ×2 (08:25→21:03)
[2020-01-28] MEDS: POLYETHYLENE (MIRALAX) 17 GM PACK PO PRN (08:34)
[2020-01-28] MEDS: MoRPHine SULFATE PCA 30 MG/30 ML IV PRN ×2 (10:23→13:50)
--- NOTE | 2020-01-28 13:17 | Hospitalist Progress Note ---
Date of Service January 28, 2020 Assessment & Plan (1) Acute pancreatitis: 2nd to heavy alcohol use (12+ beers/day). RUQ u/s on 01/23 without gallstones. Triglycerides were 230. No recent viral symptoms to suggest viral- induced pancreatitis. Plan: * LR at 250cc/hr * Pain control with IV dilaudid prn; this will be switched to a morphine ROUTE PROCESS ADMINISTRATOR pump, calculated dose so continuos dose will be similar to the dose he was receiving with dilaudid. He will also have breakthrough pain ROUTE PROCESS ADMINISTRATOR doses avail able as well. * GI prophy with pepcid IV * DVT proph with lovenox * Lipase improved. * Advanced diet to soft diet, will cut back on ROUTE PROCESS ADMINISTRATOR dose. (2) Alcoholism: At high risk of alcohol withdrawal. Placed on alcohol withdrawal protocol including gabapentin taper, ativan IV/PO prn, and withdrawal scoring per protocol. High-dose thiamine 200mg IV BID. Folic acid 1mg IV daily. MVI daily. Patient, in the presence of his , admitted he has a problem with alcohol and does wish to "do something about it." Later in his stay we can discuss outpatient and inpatient rehab options. - Discussed again today that abstinence is crucial. No major signs/symptoms of withdrawal apart from mild tachycardia. (3) GERD (gastroesophageal reflux disease): IV pepcid BID. (4) Avascular necrosis of bone: (5) Elevated BP without diagnosis of hypertension: Uncertain if due to severe abdominal pain, early withdrawal from etoh, or has pre-existing HTN -- or combination of factors. Will observe for now. However, if pain is controlled and systolic BPs remain >180-190 then treatment likely deserved. Will place order for lopressor 5mg IV q6h prn. - Stable today. (6) Tobacco use: Nicoderm patch 7mg/day. Uses dip on regular basis. (7) DVT prophylaxis: Lovenox 40mg daily Admission and Anticipated Discharge Date Admission Date: January 24, 2020 Subjective Patient reports feeling significantly better today. after ROUTE PROCESS ADMINISTRATOR had been started. Patient wants to try a diet today. Review of Systems Review of Systems: All systems reviewed & are unremarkable except as noted in HPI & below Physical Exam Physical Exam: Constitutional: WD/WN, vitals as above Eyes: EOM intact bilaterally; no conjunctival abnormality ENMT: external ear and nose normal, oropharynx normal Neck: trachea midline, no thyromegaly normal visual inspection Respiratory: normal respiratory effort, lungs clear to auscultation no respiratory distress Cardiovascular: Rate/Rhythm: regular rhythm and + tachycardic Heart Sounds: normal S1 and normal S2 Extremities: no edema Gastrointestinal (Abdomen): Inspection/Auscultation: abdomen normal to inspection and normal bowel sounds; abdomen not distended Percussion/Palpation: + decreased abdomen tender (Epigastric region) and abdomen soft; no guarding and abdomen not rigid Musculoskeletal: no cyanosis or clubbing, extremities motor strength 5/5 Skin: no rashes, warm and dry Neurologic: moves all extremities and awake Psychiatric: Orientation: alert, oriented to person and cooperative Results & Data Results & Data ([facility]) Vital Signs (Past 12 Hours) Vital Signs Temp Pulse Pulse Pulse Resp BP Pulse Ox 01/28/20 11:03 36.8 C 94 H 16 138/94 96 01/28/20 08:56 102 H 01/28/20 07:12 37.1 C 94 H 18 132/88 95 01/28/20 03:08 37.1 C 95 H 18 147/94 H 96 PG Care Time/CCT Total # of Minutes Spent Total Time Spent with Patient: Total time spent is greater than 50% in coordination of care (as documented) at patient's floor/unit and/or counseling patient: Coding Level of Care Code 61819 Subseq Hosp Care Lvl 3 Diagnoses Acute pancreatitis K85.20 Acute pancreatitis complication: no infection or necrosis Pancreatitis type: alcohol induced Alcoholism F10.20 GERD (gastroesophageal reflux disease) K21.9 Esophagitis presence: esophagitis presence not specified Avascular necrosis of bone M87.00 Elevated BP without diagnosis of hypertension R03.0 Tobacco use Z72.0 DVT prophylaxis Z29.9 Time Spent (min) 35 (1) GERD (gastroesophageal reflux disease) Esophagitis presence: esophagitis presence not specified Qualified Code(s): K21.9 - Gastro-esophageal reflux disease without esophagitis (2) Acute pancreatitis Acute pancreatitis complication: no infection or necrosis Pancreatitis type: alcohol induced Qualified Code(s): K85.20 - Alcohol induced acute pancreatitis without necrosis or infection
[2020-01-28] MEDS: SODIUM CHLORIDE 0.9% 1000ML 1,000 ML IV SCH (17:04)
[2020-01-29] MEDS: POTASSIUM CHLORIDE 20 MEQ in LACTATED RINGER'S 1,000 ML IV SCH ×4 (01:54→10:30)
[2020-01-29] MEDS: FOLIC ACID 1 MG in SYRINGE 9.8 ML IV SCH (08:11)
[2020-01-29] MEDS: FAMOTIDINE 20 MG in SYRINGE 3 ML IV SCH (08:12)
[2020-01-29] MEDS: NICOTINE 7 MG/24 HR TDSY TD SCH (08:12)
[2020-01-29] MEDS: THIAMINE HCL 200 MG in SODIUM CHLORIDE 0.9% 50 ML IV SCH (08:12)
[2020-01-29] MEDS: CEROVITE ADV FORMULA TAB PO SCH (08:12)
[2020-01-29] MEDS: HEPARIN SOD 5,000 UNIT/0.5 ML VIAL SQ SCH (08:13)
[2020-01-29 08:50] LABS: Hematocrit (blood only) 38.4 % (42-52); Hemoglobin 13.3 g/dL (14.0-18.0); Mean Corpuscular Hemoglobin 32.4 pg (25-34); Mean Corpuscular Hgb Conc 34.6 g/dL (32-36); Mean Corpuscular Volume 93.4 fL (80-100); Mean Platelet Volume 10.1 fL (7.4-10.4); Platelet Count 274 K/uL (130-400); RDW Coefficient of Variation 11.8 % (11.5-14.5); RDW Standard Deviation 39.7 fL (36.4-46.3); Red Blood Count 4.11 M/uL (4.7-6.1); White Blood Count 6.65 K/uL (4.8-10.8)
[2020-01-29 09:11] LABS: Albumin Level 2.9 gm/dl (3.4-5.0); BUN Creatinine Ratio 8.3 (10-20); Calcium 10.1 mg/dl (8.5-10.1); Creatinine Clr Calc Pharmacy 129.8 ml/min; Est GFR (African American) 124.5; Est GFR (Non-African American) 107.4; Potassium 4.2 mmol/L (3.5-5.1)
[2020-01-29 09:14] LABS: Albumin Globulin Ratio 0.7 (0.9-2); Bilirubin,Total 0.9 mg/dl (0.2-1); Globulin 4.5 gm/dl (2.5-4.0); Total Protein 7.4 gm/dl (6.4-8.2)
[2020-01-29] MEDS ORDERED: LACTATED RINGER'S 1,000 ML IV ONE (15:16)
[2020-01-30 16:41] LABS: Vitamin D 1,25 75 pg/mL (18-72); Vitamin D3,1,25 75 pg/mL
--- NOTE | 2020-02-05 09:14 | Discharge Summary ---
Date of Service January 29, 2020 Admission HPI Per Admitting Provider 34yo male with history of alcohol abuse who presents with severe periumbilical abdominal pain starting when he woke up at 0730 this am. Pain is 10/10. Numerous episodes of emesis. Had normal bowel movement this am but this did not relieve the pain. Pain feels like "someone is ripping my guts out." No RUQ or LUQ pain. Mild low back pain. No cough. Had mild dyspnea this am when the abdominal pain was severe. Had panic attack while waiting in the ER waiting room. CT abd/pelvis with pancreatitis, and lipase is elevated. Patient admits to heavy alcohol use. On most days he drinks twelve 16-ounce beers. He had alcohol-induced pancreatitis 2 years ago. Principal Diagnosis Acute pancreatitis Discharge Exam Constitutional: WD/WN, vitals as above Eyes: EOM intact bilaterally; no conjunctival abnormality ENMT: external ear and nose normal, oropharynx normal Neck: trachea midline, no thyromegaly normal visual inspection Respiratory: normal respiratory effort, lungs clear to auscultation no respiratory distress Cardiovascular: Rate/Rhythm: regular rhythm and + tachycardic Heart Sounds: normal S1 and normal S2 Extremities: no edema Gastrointestinal (Abdomen): Inspection/Auscultation: abdomen normal to inspection and normal bowel sounds; abdomen not distended Percussion/Palpatio n:( negative) abdomen tender; abdomen soft; no guarding and abdomen not rigid Musculoskeletal: no cyanosis or clubbing, extremities motor strength 5/5 Skin: no rashes, warm and dry Neurologic: moves all extremities and awake Psychiatric: Orientation: alert, oriented to person and cooperative Discharge Data Allergies Allergy/AdvReac Type Severity Reaction Status Date / Time No Known Allergies Allergy Verified 01/24/20 18:22 Consultations 01/24/20 15:36 ED Decision to Admit Stat Ordered Studies 01/24/20 13:54 CT abd pelvis IV con only Stat 01/24/20 16:24 US gallbladder Urgent Hospital Course (1) Acute pancreatitis: 2nd to heavy alcohol use (12+ beers/day). RUQ u/s on 01/23 without gallstones. Triglycerides were 230. No recent viral symptoms to suggest viral- induced pancreatitis. Plan: * LR at 250cc/hr * Pain control with IV dilaudid prn; this will be switched to a morphine CHANGE LEAD pump, calculated dose so continuos dose will be similar to the dose he was receiving with dilaudid. He will also have breakthrough pain CHANGE LEAD doses available as well. * GI prophy with pepcid IV * DVT proph with lovenox * Lipase improved. * Advanced diet to soft diet, pain has resolved. * Patient improved clinically. Lipase did increase however, will recheck in a few days. * counselled patient on remaining abstinent from drinking (2) Alcoholism: At high risk of alcohol withdrawal. Placed on alcohol withdrawal protocol including gabapentin taper, ativan IV/PO prn, and withdrawal scoring per protocol. High-dose thiamine 200mg IV BID. Folic acid 1mg IV daily. MVI daily. Patient, in the presence of his , admitted he has a problem with alcohol and does wish to "do something about it." We discussed outpatient and inpatient rehab options. - Discussed again today that abstinence is crucial. No major signs/symptoms of withdrawal apart from mild tachycardia. (3) GERD (gastroesophageal reflux disease): IV pepcid BID. (4) Avascular necrosis of bone: (5) Elevated BP without diagnosis of hypertension: Uncertain if due to severe abdominal pain, early withdrawal from etoh, or has pre-existing HTN -- or combination of factors. Will observe for now. However, if pain is controlled and systolic BPs remain >180-190 then treatment likely deserved. Will place order for lopressor 5mg IV q6h prn. - Stable today. (6) Tobacco use: Nicoderm patch 7mg/day. Uses dip on regular basis. (7) DVT prophylaxis: Lovenox 40mg daily Total Time Total Time Spent Total Time Spent (In Minutes): 32 Total Time Includes: Examination of the Patient, Discharge Planning and Medication Reconciliation Discharge Plan Discharge Items Patient Disposition: Home - Self-Care Reason For Visit: ACUTE PANCREATITUS; ALCOHOL ABUSE Discharge Diagnosis: Acute Pancreatitis Activity: Resume your previous activity Non-emergency contact: Primary Care Provider Call non-emergency contact if: you have any medication questions Follow-up/Referrals: Vonda Dennison CRNP [Nurse Practitioner] - 02/05/20 1:00 pm (Please follow up with NEVA Arshad at [facility] on Monday02/05/2020 at 1:00 pm. Please arrive to the office 15 minutes early for your appointment. If you are unable to keep this appointment, please call the office to reschedule at [phone].) Diet: Low Fat Diet Texture: Easy to Chew Addtl Attending Provider Instructions: You have been hospitalized for an acute medical problem. During your stay at [facility], we have made an effort to correct the problem that brought you to the hospital while keeping you as comfortable as possible. Medications were used to bring your condition under control and your discharge instructions will include directions for any medications you should take after leaving the hospital. Please make sure you see your Primary Care Provider as part of your follow up plan. Limit alcohol use. Followup with [facility] pcp IN 1-2 WEEKS. Recheck blood work in 2 days. Pending Studies at Discharge: No Stand-Alone Forms: [facility], Smoking Cessation Medications and DC Order Prescriptions: New nicotine 7 mg/24 hr Patch 24 Hour 7 mg transdermal QAM Qty: 30 RF: 0 Continued loratadine [Claritin] 10 mg Tablet 10 mg PO DAILY RF: 0 multivitamin Tablet 1 tab PO DAILY RF: 0 Discontinued pantoprazole 40 mg tablet,delayed release (DR/EC) 40 mg PO DAILY Qty: 90 RF: 3 Discharge Orders: Discharge Order (Routine); Ordered 01/29/20 Ordered By: Yefri Crump Admission Data Admit Date/Time: 01/24/20 16:23 Attending Provider: Yefri Crump Admit Provider: Lance Russo Primary Care Provider: Beatrice Link Other Providers: Cain Byers Other Interventions: Discharge Summary Assessment (RN) Last Done: 01/29/20 15:37 Coding Level of Care Code D/C Day Management >30 mins Diagnoses Acute pancreatitis K85.20 Pancreatitis type: alcohol induced Acute pancreatitis complication: no infection or necrosis Alcoholism F10.20 GERD (gastroesophageal reflux disease) K21.9 Esophagitis presence: esophagitis presence not specified Avascular necrosis of bone M87.00 Elevated BP without diagnosis of hypertension R03.0 Tobacco use Z72.0 DVT prophylaxis Z29.9
== END 2020-01-29 16:30 | disposition home or self-care (01) | DRG 439 ==
LOC: ED 11:54 → 2S 16:23 → SUATTDRO 16:23 → 2S 19:39